=== PATIENT | female | born 1955 | race Caucasian/White ===

== ENCOUNTER 2018-01-19 16:48 | Inpatient (IN) | payer MEDICARE ==
[~2018-01-19] VITALS: Ht 157.5 cm; Wt 83.0 kg
[2018-01-19 19:53] LABS: BASOPHILS % 0.4 % (0.0-1.0); EOSINOPHILS # (AUTO) 0.3 (0.0-0.4); EOSINOPHILS % 2.6 % (0.0-6.0); HEMATOCRIT 34.3 % (34.2-44.1); LYMPHOCYTES # (AUTO) 1.3 (1.0-3.2); LYMPHOCYTES % 13.6 % (18.0-39.1); MEAN CORPUSCULAR HEMOGLOBIN 30.3 pg (28-32); MEAN CORPUSCULAR HGB CONC 32.1 g/dL (31-35); MEAN CORPUSCULAR VOLUME 94.5 fL (81-99); MONOCYTES # (AUTO) 0.6 (0.2-0.8); MONOCYTES % 6.6 % (4.4-11.3); NEUTROPHILS # (AUTO) 7.4 (2.1-6.9); NEUTROPHILS % 76.5 % (38.7-80.0); PLATELET COUNT 244 x10e3/uL (140-360); RED BLOOD COUNT 3.63 x10e6/uL (3.6-5.1); RED CELL DISTRIBUTION WIDTH 13.8 % (11.7-14.4)
[2018-01-19 20:03] LABS: INR 0.98; PROTHROMBIN TIME 13.9 seconds (11.9-14.5)
[2018-01-19 20:10] LABS: ALBUMIN 3.9 g/dL (3.5-5.0); ALBUMIN/GLOBULIN RATIO 1.2 (0.8-2.0); ANION GAP 18.6 mmol/L (8-16); CALCIUM 10.1 mg/dL (8.4-10.2); CREATININE, SERUM 5.45 mg/dL (0.57-1.11); MAGNESIUM 1.9 MG/DL (1.3-2.1); POTASSIUM 3.6 mmol/L (3.5-5.1)
--- NOTE | 2018-01-19 20:12 | Diagnostic Imaging Report ---
EXAM: CHEST SINGLE (PORTABLE), AP 1 view INDICATION: Right toe infection COMPARISON: None FINDINGS: LINES/TUBES: There is a right internal jugular vein tunneled hemodialysis catheter terminates in the expected location of the proximal right atrium. There is a left upper single lead cardiac device with lead in the expected location of the right ventricle. LUNGS: No consolidations or edema. PLEURA: No effusions or pneumothorax. HEART AND MEDIASTINUM: Normal size and contour. Central vascular congestion, likely accentuated by low inspiration. BONES AND SOFT TISSUES: No acute findings. IMPRESSION: No pulmonary edema or evidence of pneumonia. Signed by: Dr. Karie Sales M.D. on 01/19/2018 8:07 PM
--- NOTE | 2018-01-19 20:14 | Diagnostic Imaging Report ---
EXAM: FOOT RIGHT COMPLETE, AP, lateral and oblique INDICATION: Right toe infection after pulling off nail, first digit COMPARISON: None FINDINGS: BONES: No acute fractures. JOINTS: No malalignment. SOFT TISSUES: Subcutaneous emphysema overlying the first digit. Vascular calcifications. IMPRESSION: Wound projects over the first digit without underlying radiopaque foreign body, fracture or erosion. Signed by: Dr. Karie Sales M.D. on 01/19/2018 8:09 PM
[2018-01-19 20:19] LABS: CREATINE KINASE MB 1.2 ng/mL (0-5.0)
[2018-01-19 20:46] LABS: BILIRUBIN,URINE 1+ (NEGATIVE); CLARITY,URINE CLOUDY (CLEAR); COLOR,URINE YELLOW (YELLOW); KETONES,URINE TRACE (NEGATIVE); LEUKOCYTE ESTERASE ,URINE TRACE (NEGATIVE); NITRITE,URINE NEGATIVE (NEGATIVE); PROTEIN,URINE DIPSTICK 3+ (NEGATIVE); URINE UROBILINOGEN 0.2 mg/dL (0.2 - 1)
[2018-01-19 20:53] LABS: AMORPHOUS SEDIMENT,URINE MANY (FEW); EPITHELIAL CELLS,URINE FEW /LPF; RBC,URINE 0-5 /HPF (0-5); WBC,URINE (MAN) 0-5 /HPF (0-5)
[2018-01-19] MEDS ORDERED: VANCOMYCIN 1GM/NS 250 ML 250 ML IV STA (21:11)
[2018-01-19] MEDS ORDERED: PANTOPRAZOLE SO40 MG PO (21:26)
[2018-01-19] MEDS ORDERED: ATORVASTATIN CA10 MG PO (21:26)
[2018-01-19] MEDS ORDERED: LOSARTAN POTASS25 MG PO (21:26)
[2018-01-19] MEDS ORDERED: PRILOSEC OTC20 MG PO (21:26)
[2018-01-19] MEDS ORDERED: ZOFRAN ODT4 MG PO (21:26)
[2018-01-19] MEDS ORDERED: NOVOLIN N100 UNIT/1 (21:26)
[2018-01-19] MEDS ORDERED: DOXYCYCLINE HY100 MG PO (21:26)
[2018-01-19] MEDS ORDERED: LEVETIRACETAM500 MG PO (21:26)
[2018-01-19] MEDS ORDERED: LOVASTATIN20 MG PO (21:26)
[2018-01-19] MEDS ORDERED: CARVEDILOL3.125 MG PO (21:26)
[2018-01-19] MEDS ORDERED: SERTRALINE HCL25 MG PO (21:26)
[2018-01-19] MEDS ORDERED: VITAMIN B-121000 MCG PO (21:26)
[2018-01-19] MEDS ORDERED: QUETIAPINE FUMA25 MG PO (21:26)
[2018-01-19] MEDS ORDERED: SERTRALINE HCL100 MG PO (21:26)
[2018-01-19] MEDS ORDERED: ASPIR 8181 MG PO (21:26)
[2018-01-19] MEDS ORDERED: AMLODIPINE BESYL5 MG PO (21:26)
[2018-01-19] MEDS ORDERED: ONDANSETRON HCL INJ 2 MG/ML VIAL IV PRN (22:30)
[2018-01-19] MEDS ORDERED: MORPHINE SULFATE 2 MG/ML SYR IV PRN (22:30)
[2018-01-19] MEDS ORDERED: DEXTROSE 50% SYRINGE 50 ML IV PRN (22:30)
[2018-01-19] MEDS ORDERED: DIPHENHYDRAMINE HCL INJ 50 MG/ML VIAL IV STA (22:57)
[2018-01-19] MEDS ORDERED: HYDROCODONE/APAP 5MG-325MG TAB PO STA (22:57)
[2018-01-19 23:25] VITALS: BP 156/67
[2018-01-19 23:41] VITALS: BP 156/67
[2018-01-20] VITALS (8 sets, daily range): BP systolic 114–156; BP diastolic 63–74
[2018-01-20 07:32] LABS: BASOPHILS % 0.2 % (0.0-1.0); EOSINOPHILS # (AUTO) 0.2 (0.0-0.4); EOSINOPHILS % 2.7 % (0.0-6.0); HEMATOCRIT 29.9 % (34.2-44.1); HEMOGLOBIN 9.6 g/dL (12.0-16.0); LYMPHOCYTES # (AUTO) 0.9 (1.0-3.2); LYMPHOCYTES % 10.4 % (18.0-39.1); MEAN CORPUSCULAR HEMOGLOBIN 30.5 pg (28-32); MEAN CORPUSCULAR HGB CONC 32.1 g/dL (31-35); MEAN CORPUSCULAR VOLUME 94.9 fL (81-99); MONOCYTES # (AUTO) 0.8 (0.2-0.8); MONOCYTES % 9.1 % (4.4-11.3); NEUTROPHILS # (AUTO) 6.9 (2.1-6.9); NEUTROPHILS % 77.2 % (38.7-80.0); PLATELET COUNT 212 x10e3/uL (140-360); RED BLOOD COUNT 3.15 x10e6/uL (3.6-5.1); RED CELL DISTRIBUTION WIDTH 14.1 % (11.7-14.4)
[2018-01-20] MEDS: INSULIN REGULAR, HUMAN 100 UNIT/1 ML 3ML VIAL SQ SCH ×4 (08:29→21:00)
[2018-01-20] MEDS: PIPERACILLIN/TAZO 2.25 GM 50 ML IV SCH ×2 (08:31→16:56)
[2018-01-20 08:36] LABS: ANION GAP 15.1 mmol/L (8-16); CALCIUM 9.1 mg/dL (8.4-10.2); CREATININE, SERUM 6.11 mg/dL (0.57-1.11); POTASSIUM 3.1 mmol/L (3.5-5.1)
[2018-01-20] MEDS ORDERED: SODIUM CHLORIDE 0.9% 250ML 250 ML ONE (08:37)
--- NOTE | 2018-01-20 10:19 | Consultation ---
DATE OF CONSULTATION: January 20, 2018 REASON FOR CONSULTATION: Cellulitis of right foot with possible osteo, right lower extremity. HISTORY OF PRESENT ILLNESS: This is a pleasant 62-year-old white female with a history of insulin-dependent diabetes and end-stage renal disease for 3 years, who relates she was having some chills several days ago. Has had an infection to the right great toe for several weeks. Was seeing a marketing analytics lead, but the patient does not recall the name of the marketing analytics lead. Is currently denying history of fever, chills, nausea, or vomiting. Having some discomfort to the right great toe. PAST MEDICAL HISTORY: Remarkable for insulin-dependent diabetes, congestive heart failure, end-stage renal disease, hypertension, hypercholesterolemia. PAST SURGICAL HISTORY: Patient denies. ALLERGIES: PATIENT IS ALLERGIC TO SUDAFED AND BACTRIM. SOCIAL HISTORY: Does not smoke, drink or do any type of recreational drug use. Lives alone and has 3 children. FAMILY HISTORY: Remarkable for diabetes on the mother's side. Patient's father was an alcoholic. CURRENT MEDICATIONS: List in chart, including Zosyn and did have a gram of vancomycin when admitted through the emergency room. REVIEW OF SYSTEMS CARDIAC: Denies any palpitations or arrhythmias. RESPIRATORY: Denies any shortness of breath or productive cough. GASTROINTESTINAL: Denies any diarrhea or constipation. PHYSICAL EXAMINATION VITALS: Afebrile, pulse rate 73, respirations 18, blood pressure 134/63, O2 saturation 92%. PODIATRIC PHYSICAL EXAMINATION Reveals the following: VASCULAR: Pedal pulses of both the DP and PT are palpable, but diminished. CFT to all toes less than 5 seconds. NEUROLOGICAL: Complete loss of protective sensation when utilizing [place] 5.07 monofilament wire. MUSCULOSKELETAL: Reveals muscle mass to be symmetrical. Muscle strength is 5/5 to all muscle groups with pain when palpating the medial tubercle bilateral heel. DERMATOLOGICAL: Cellulitis of right great toe. Nail being yellow and discolored with subungual debris. Somewhat discolored when compared to contralateral side. ASSESSMENT: Possible osteomyelitis, right foot. X-ray report with possible foreign body. Was not able to visualized the x-rays myself on this date. PLAN: Will continue IV antibiotics. Will start Bactroban ointment to the affected area. Will continue to observe. Let the foot demarcate and see if the patient starts responding. Possible nail avulsion may eventually will need to be done depending on how the patient starts responding. Possible surgical intervention, including bone debridement may need to be done down the road. Job#: [id number] ALFRED
--- NOTE | 2018-01-20 14:14 | Consultation ---
DATE OF CONSULTATION: RENAL CONSULT REASON FOR CONSULT: ESRD. HISTORY OF PRESENT ILLNESS: This is 62-year-old female who does not remember any of his history. She was admitted secondary to right big toe infection, she has been having that for several weeks. PAST MEDICAL HISTORY: Include 1. ESRD, on hemodialysis Saturday, Saturday, and Saturday. 2. Type 2 diabetes mellitus. 3. Congestive heart failure. 4. Hypertension. 5. Hypercholesteremia. PAST SURGICAL HISTORY: Negative. ALLERGIES: SUDAFED AND BACTRIM. SOCIAL HISTORY: No smoking, no alcohol, and no drugs. FAMILY HISTORY: Type 2 diabetes mellitus. MEDICATIONS: Reviewed. REVIEW OF SYSTEMS: Denies any shortness of breath. Denies any chest pain. Denies any blood in the stool, blood in the urine. No sensory loss, no motor loss. No skin changes except her necrosis. Denies any enlarged lymph nodes. Basically otherwise negative. PHYSICAL EXAMINATION GENERAL: Alert, following commands. HEENT: Pupils equal and reactive to light and accommodation. NECK: No JVD, no bruits. LUNGS: No rhonchi, no rales. HEART: Regular rate and rhythm. No S3, no S4. ABDOMEN: Nontender, nondistended. No hepatosplenomegaly. EXTREMITIES: No clubbing, cyanosis or edema. Right big toe with infection. VITAL SIGNS: Blood pressure 138/63. LABS: White count 8.9, hemoglobin 9.6, hematocrit 29.9. Sodium 140, potassium 3.1, chloride 102, BUN 30, and creatinine 6.1. ASSESSMENT AND PLAN 1. End-stage renal disease, on hemodialysis, scheduled the patient with dialysis today. 2. . We will start the patient on Epogen every dialysis. 3. Right big toe infection. Podiatry is involved, currently on Bactroban ointment and IV antibiotics. She is on Zosyn. 4. Type 2 diabetes mellitus. We will monitor her glucose. Job#: [id number] MORE
[2018-01-20] MEDS ORDERED: ONDANSETRON HCL 4 MG ORAL DISINTEGRATING TAB PO PRN (17:30)
--- NOTE | 2018-01-20 17:56 | History and Physical ---
HISTORY OF PRESENT ILLNESS: A 62-year-old female who has a past medical history positive for diabetes, hypertension, history of end-stage disease on dialysis. Came here because of an infected right big toe. REVIEW OF SYSTEMS: CARDIOVASCULAR: No chest pain or palpitation. RESPIRATORY: No shortness of breath. No cough. GASTROINTESTINAL: No nausea, no vomiting, no diarrhea. GENITOURINARY: No frequency, no dysuria. ALLERGIES: SHE IS ALLERGIC TO BACTRIM, PSEUDOEPHEDRINE. SOCIAL HISTORY: She does not drink alcohol. PHYSICAL EXAMINATION: HEART: Shows regular rhythm. Normal S1 and S2 sounds. LUNGS: Clear bilaterally. ABDOMEN: Soft. EXTREMITIES: Show the redness and swelling on the right big toe with a thickened toenail. FINAL IMPRESSION: 1. Right big toe cellulitis, rule out osteomyelitis. 1. End-stage renal disease on dialysis. 2. Chronic anemia secondary to end-stage renal disease. 3. Diabetes mellitus type 2 with end-stage renal disease. 4. Hypertensive nephropathy. 5. Seizure disorder. PLAN OF TREATMENT: Continue Zosyn twice a day. Continue monitoring blood sugar a.c. and nightly. Continue morphine 4 mg IV q.4 hours as needed. Zofran 4 mg IV q.4 hours as needed. Continue dialysis. Continue renal diabetic diet. Resume the rest of the medications. We are going to get a consult with Dr. Solis for a call or contact centre operator. Dr. Downey has been seeing her for dialysis and Dr. Do for infectious diseases. Job#: [id number] EV
[2018-01-20] MEDS: ATORVASTATIN 10 MG TAB PO SCH (21:25)
[2018-01-20] MEDS: QUETIAPINE FUMARATE 25 MG TAB PO SCH (21:25)
[2018-01-21] VITALS: BP 147/64
[2018-01-21 04:00] VITALS: BP 167/70
[2018-01-21 05:08] LABS: BASOPHILS % 0.4 % (0.0-1.0); EOSINOPHILS # (AUTO) 0.3 (0.0-0.4); EOSINOPHILS % 4.3 % (0.0-6.0); HEMATOCRIT 30.5 % (34.2-44.1); HEMOGLOBIN 9.8 g/dL (12.0-16.0); LYMPHOCYTES # (AUTO) 1.3 (1.0-3.2); LYMPHOCYTES % 17.8 % (18.0-39.1); MEAN CORPUSCULAR HEMOGLOBIN 30.4 pg (28-32); MEAN CORPUSCULAR HGB CONC 32.1 g/dL (31-35); MEAN CORPUSCULAR VOLUME 94.7 fL (81-99); MONOCYTES # (AUTO) 0.7 (0.2-0.8); MONOCYTES % 9.7 % (4.4-11.3); NEUTROPHILS # (AUTO) 4.8 (2.1-6.9); NEUTROPHILS % 67.2 % (38.7-80.0); PLATELET COUNT 202 x10e3/uL (140-360); RED BLOOD COUNT 3.22 x10e6/uL (3.6-5.1); RED CELL DISTRIBUTION WIDTH 14.2 % (11.7-14.4)
[2018-01-21 05:34] LABS: ANION GAP 17.2 mmol/L (8-16); CALCIUM 9.2 mg/dL (8.4-10.2); CREATININE, SERUM 5.81 mg/dL (0.57-1.11); POTASSIUM 3.2 mmol/L (3.5-5.1)
[2018-01-21] MEDS: INSULIN REGULAR, HUMAN 100 UNIT/1 ML 3ML VIAL SQ SCH ×4 (07:30→21:00)
[2018-01-21] MEDS: AMLODIPINE BESYLATE 5 MG TAB PO SCH (07:30)
--- NOTE | 2018-01-21 07:46 | Progress Note ---
DATE: January 21, 2018 SUBJECTIVE: Patient seen at bedside, in no distress. Denies any issues. No fever, chills, nausea or vomiting. OBJECTIVE VITAL SIGNS: Afebrile. Pulse rate 69. Respirations 18. Blood pressure 167/70. O2 saturation 94%. EXTREMITIES: Right great toe getting a little bit better. Still some mild cellulitis compared to contralateral side. Pedal pulse is palpable. LABS: Show a white blood cell count of 7.14. ASSESSMENT: Cellulitis right foot with diabetic neuropathy. PLAN: Will continue IV antibiotics. Continue local wound care. Will continue to let the foot demarcate. Will continue to follow. Job#: [id number] DENISE
[2018-01-21 07:48] VITALS: BP 140/81
[2018-01-21] MEDS ORDERED: PANTOPRAZOLE SOD 40 MG TABEC PO SCH (09:00)
[2018-01-21] MEDS: LOSARTAN POTASSIUM 25 MG TAB PO SCH ×2 (09:00→17:31)
[2018-01-21] MEDS: CARVEDILOL 3.125 MG TAB PO SCH ×2 (09:00→17:31)
[2018-01-21] MEDS: PANTOPRAZOLE SOD 40 MG TABEC PO SCH (10:10)
[2018-01-21] MEDS: PIPERACILLIN/TAZO 2.25 GM 50 ML IV SCH ×2 (10:10→17:00)
[2018-01-21] MEDS: LEVETIRACETAM 500 MG TAB PO SCH ×2 (10:10→17:29)
[2018-01-21] MEDS: ASPIRIN 81 MG CHEW TAB PO SCH (10:10)
[2018-01-21] MEDS: CYANOCOBALAMIN 1,000 MCG TAB PO SCH (10:10)
[2018-01-21] MEDS: SERTRALINE HCL 100 MG TAB PO SCH (10:10)
[2018-01-21] MEDS ORDERED: SODIUM CHLORIDE 0.9% 1000ML 2,000 ML IV PRN (10:45)
[2018-01-21] MEDS ORDERED: EPOETIN 2000 UNIT SQ PRN (11:00)
[2018-01-21 11:19] VITALS: BP 146/67
[2018-01-21 15:22] VITALS: BP 129/76
--- NOTE | 2018-01-21 16:28 | Consultation ---
DATE OF CONSULTATION: REASON FOR CONSULTATION: Infection of the foot, concern for osteomyelitis. HISTORY OF PRESENT ILLNESS: This patient is a very pleasant, 62-year-old female with history of end-stage renal disease on hemodialysis, obesity, diabetes mellitus, neuropathy and congestive heart failure. She comes in with infection of her foot, which she had for more than 3 months. The patient comes in with redness and swelling of her foot. The patient is being admitted. She does have history of arrhythmia and a pacemaker, so MRI was not a possibility. The patient is going to have a bone scan. The patient is complaining of redness and swelling of her right foot. There is no specific trauma. She had for last 3 months been getting progressively worse. There is no specific trauma that she can remember. PAST MEDICAL HISTORY: End-stage disease on hemodialysis. She does see Dr. Donta Downey. She does see Dr. Jonatan Solis for her toe infection. REVIEW OF SYSTEMS HEENT: Negative. PULMONARY: Negative. CARDIAC: Negative. : Negative. SKIN: There is no other rash. JOINTS: There is no acute worsening of pain, fever or chills. PHYSICAL EXAMINATION GENERAL: She is currently alert and oriented. Does not seem to be in acute distress. VITAL SIGNS: Stable. Currently afebrile. HEENT: She is not icteric. NECK: Supple. CHEST: Clear. HEART: S1 and S2, no murmur. ABDOMEN: Soft. There is some tenderness. EXTREMITIES: No edema of the toe. There are some erythema and edema on the right foot involving the big toe. IMPRESSION: Infection in the right big toe chronic for 3 months. Concern about osteomyelitis. Bone scan was ordered. I will also recommend to do vascular workup. She is currently on Zosyn. Will follow with you. Will discuss with attending. Order C-reactive protein. Job#: [id number]
[2018-01-21] MEDS: NPH, HUMAN INSULIN ISOPHANE 100 UNIT/1 ML 3ML VIAL SQ SCH ×2 (16:30→17:32)
--- NOTE | 2018-01-21 19:24 | Progress Note ---
DATE: INTERNAL MEDICINE PROGRESS NOTE SUBJECTIVE: Patient is doing well. No significant complaint. PHYSICAL EXAM: VITAL SIGNS: Blood pressure 129/76. Temperature 96.8. Heart rate 81 per minute. Respiratory rate 17 per minute. Oxygen saturation 98%. HEART: Shows regular rhythm. Normal S1 and S2 sounds. LUNGS: Clear bilaterally. ABDOMEN: Soft. EXTREMITIES: Show the mild cellulitis on the right big toe. BLOOD WORK: Showed a BMP: Sodium 141, potassium 3.2, chloride 103, CO2 24, BUN 45, creatinine 5.81, glucose 133. On the CBC: White blood count 7.14, hemoglobin 9.8, hematocrit 30.5, platelet count 202,000. PT 13.9, PTT 33.0, INR 0.98. AST 11, ALT 8, total bilirubin 0.5, alkaline phosphatase 77. FINAL IMPRESSION: 1. Cellulitis on the right big toe. Rule out osteomyelitis. 2. End-stage renal disease on dialysis. 3. Seizure disorder. 4. Hypercholesterolemia. 5. Hypertension with hypertensive nephropathy. 6. Uncontrolled diabetes mellitus type 2 with diabetic nephropathy. PLAN OF TREATMENT: Continue Zosyn 3.375 grams IV twice a day. Continue with monitoring blood sugar a.c. and nightly. Aspirin 81 mg daily. Keppra 750 mg twice a day. Protonix 40 mg daily. Lipitor 10 mg daily. Losartan 50 mg twice a day. Seroquel 12.5 mg at bedtime. Morphine 4 mg IV q.4 hours as needed. Carvedilol 6.25 mg twice a day. NPH insulin 8 units twice a day. Zoloft 100 mg daily. Amlodipine 2.5 mg daily. Vitamin B12, 1000 mcg daily. Zofran 4 mg IV q.8 hours as needed. We are going to do a bone scan to rule out osteomyelitis, and she is going to need a central line since she has no IV access. Continue podiatry followup with Dr. Solis, infectious disease consult with Dr. Do, Dr. Downey for nephrology. This patient is on dialysis. Diet, renal diabetic diet. Job#: [id number] EV
[2018-01-21 20:00] VITALS: BP 124/54
[2018-01-21] MEDS: QUETIAPINE FUMARATE 25 MG TAB PO SCH (22:22)
[2018-01-21] MEDS: ATORVASTATIN 10 MG TAB PO SCH (22:22)
[2018-01-22] VITALS (7 sets, daily range): BP systolic 124–170; BP diastolic 55–77
[2018-01-22] MEDS: AMLODIPINE BESYLATE 5 MG TAB PO SCH (06:49)
[2018-01-22] MEDS: INSULIN REGULAR, HUMAN 100 UNIT/1 ML 3ML VIAL SQ SCH ×4 (07:30→20:30)
[2018-01-22] MEDS: PIPERACILLIN/TAZO 2.25 GM 50 ML IV SCH ×2 (09:00→16:21)
[2018-01-22] MEDS: ASPIRIN 81 MG CHEW TAB PO SCH (09:06)
[2018-01-22] MEDS: LEVETIRACETAM 500 MG TAB PO SCH ×2 (09:06→16:21)
[2018-01-22] MEDS: SERTRALINE HCL 100 MG TAB PO SCH (09:06)
[2018-01-22] MEDS: PANTOPRAZOLE SOD 40 MG TABEC PO SCH (09:07)
[2018-01-22] MEDS: CYANOCOBALAMIN 1,000 MCG TAB PO SCH (09:07)
[2018-01-22] MEDS: LOSARTAN POTASSIUM 25 MG TAB PO SCH ×2 (09:09→16:21)
[2018-01-22] MEDS: CARVEDILOL 3.125 MG TAB PO SCH ×2 (09:09→16:21)
[2018-01-22] MEDS: NPH, HUMAN INSULIN ISOPHANE 100 UNIT/1 ML 3ML VIAL SQ SCH ×2 (09:12→17:40)
--- NOTE | 2018-01-22 09:41 | Progress Note ---
DATE: January 22, 2018 SUBJECTIVE: Patient is at bedside in no distress and sleeping. OBJECTIVE VITALS: Afebrile, pulse rate 71, respirations 19, blood pressure 156/74, O2 saturation 94%. EXTREMITIES: Right great toe is getting significantly better. Decreased swelling. Decreased cellulitis. Decreased foul smell. ASSESSMENT AND PLAN: Cellulitis and onychia and onychomycosis. PLAN: Will continue Bactroban ointment to the affected area. Continue Zosyn IVPB. Will continue to follow. Job#: [id number] RI
--- NOTE | 2018-01-22 14:19 | Diagnostic Imaging Report ---
Procedure: Left internal jugular central venous catheter placement with ultrasound guidance cut off saw operator: Dr. Gino Mccord Pre-operative diagnosis: Requiring central venous access Post-operative diagnosis: Status post central venous access Sedation: Local sedation Medications: 5 cc of 1% subcutaneous lidocaine Radiation Dose: N/A Specimens: None Implants: 7 Prydeinig 20 cm triple-lumen central venous catheter DISCUSSION: Informed consent was obtained from the patient and documented in the medical record. The patient was placed in the supine position. Preliminary sonographic evaluation of the left neck confirmed a patent and compressible left internal jugular vein. The neck was then prepped and draped in a standard sterile fashion. Subsequently, 1% lidocaine was infiltrated into the skin and subcutaneous tissues for local anesthesia. Then under continuous sonographic guidance a micropuncture needle was advanced into the left internal jugular vein. A permanent sonographic image was stored in the medical record. An .018'' wire was placed and upsized to an .035'' Amplatz wire using micropuncture sheath. The .035'' wire was advanced centrally. The micropuncture sheath was removed. The tract was dilated. Then, a 7 [place]ig, 20 cm triple-lumen central venous catheter was advanced over the wire. The wire was then removed. Each lumen was tested and showed adequate bidirectional flow. The catheter was secured to the skin with Monocryl, flushed with sterile saline, and covered by a sterile dressing. The patient tolerated the procedure well without immediate duplication. FINDINGS: Patent left internal jugular vein. IMPRESSION: Placement of a 7 Prydeinig 20 cm triple-lumen central venous catheter by a left internal jugular approach under sonographic guidance. A postprocedure chest radiograph will be obtained to confirm line positioning prior to use. Signed by: Dr. Gino Mccord MD on 01/22/2018 2:16 PM
--- NOTE | 2018-01-22 14:24 | Diagnostic Imaging Report ---
EXAMINATION: CHEST XRAY LINE PLACEMENT INDICATION: Status post line placement COMPARISON: Chest radiograph 01/19/18. FINDINGS: LINES/TUBES: Interval placement of a left IJ non-tunneled central venous catheter with tip in the expected location of the cavoatrial junction. There is a right internal jugular vein tunneled hemodialysis catheter terminates in the expected location of the proximal right atrium. There is a left single lead cardiac device with lead in the expected location of the right ventricle. LUNGS: Low lung volumes with mild patchy bibasilar atelectasis. No consolidations or edema. PLEURA: No effusions or pneumothorax. HEART AND MEDIASTINUM: Unremarkable cardiomediastinal silhouette. Central vascular congestion, likely secondary to low long volumes. BONES AND SOFT TISSUES: No acute findings. IMPRESSION: Left IJ non-tunneled central venous catheter terminating at the expected location of the cavoatrial junction. No evidence of pneumothorax. No acute intrathoracic radiographic abnormality. Signed by: Dr. Gino Mccord MD on 01/22/2018 2:21 PM
[2018-01-22] MEDS: MORPHINE SULFATE INJ 4 MG/ML INJ IV PRN ×2 (17:24→23:07)
--- NOTE | 2018-01-22 19:00 | Progress Note ---
DATE: INTERNAL MEDICINE PROGRESS NOTE SUBJECTIVE: The patient is doing better. PHYSICAL EXAMINATION VITAL SIGNS: Blood pressure 138/55, temperature is 97.3, heart rate 71 per minute, respiratory rate 19 per minute, oxygen saturation 97%. HEART: Shows regular rhythm. Normal S1 and S2 sounds. LUNGS: Clear bilaterally. ABDOMEN: Soft. EXTREMITIES: Show no evidence of cyanosis or trauma. She has cellulitis on the right big toe which is slowly resolving. On the BMP, sodium 141, potassium 3.2, chloride 103, CO2 24, BUN 45, creatinine 5.81, glucose 133. On the CBC, white blood count 7.14, hemoglobin 9.8, hematocrit 30.5, and platelet count 202,000. PT 13.9, INR 0.98 and PTT 33. AST 11, ALT 8, total bilirubin 0.5, alkaline phosphatase 170. FINAL IMPRESSION 1. Right big toe cellulitis: Rule out osteomyelitis. 2. End-stage renal disease, on dialysis. 3. Diabetes mellitus, type 2 with end-stage renal disease. 4. Seizure disorder. 5. Hypercholesterolemia. 6. Hypertensive nephropathy. PLAN OF TREATMENT: Continue Zosyn q.12 h. Continue monitoring blood sugar a.c. and at night. Aspirin 81 mg daily. Keppra 750 mg twice a day. Protonix 40 mg daily. Lipitor 10 mg daily. Losartan 50 mg twice a day. Seroquel 12.5 mg at bedtime. Morphine 4 mg IV q.4 h. as needed. Carvedilol 6.25 mg twice a day. NPH insult 8 units twice a day. Sertraline 100 mg daily. Amlodipine 2.5 mg daily. Vitamin B12 1000 mcg daily. Zofran 4 mg IV q.8 h. as needed. We are waiting for the bone scan report. Job#: [id number] ALFRED
[2018-01-22] MEDS: ATORVASTATIN 10 MG TAB PO SCH (20:33)
[2018-01-22] MEDS: QUETIAPINE FUMARATE 25 MG TAB PO SCH (20:33)
[2018-01-23] VITALS: BP 119/57
[2018-01-23 04:00] VITALS: BP 110/55
[2018-01-23 07:44] VITALS: BP 101/49
--- NOTE | 2018-01-23 07:44 | Diagnostic Imaging Report ---
Bone Scan, three-phase - feet and ankles Reason for exam: Cellulitis right great toe; injury to right great toe 3 months ago. Radiopharmaceutical: Tc-99m MDP 27 mCi Comparison: Right foot radiographs 01/19/2018 Following intravenous administration of the radiopharmaceutical, dynamic flow and immediate blood pool images of the feet and ankles followed by 24-hour delayed spot images were obtained. Flow and blood pool images show symmetric distribution of tracer activity to the feet and ankles with focal increased tracer in the right great toe. The toes of the left foot are poorly perfused. Delayed images show focal increased tracer activity in the phalanges of the right great toe. Symmetrical increased tracer uptake is seen in the bilateral first metatarsophalangeal joints and diffuse degenerative changes/neuropathic changes in the ankles and mid foot regions. Impression: Scan findings are worrisome for osteomyelitis in the right great toe. Three-phase bone scan lacks specificity in the clinical setting of complicated osteomyelitis. A labeled WBC scan would add specificity to the evaluation. Signed by: Dr. Lubna Loving M.D. on 01/23/2018 7:41 AM
[2018-01-23 08:00] VITALS: BP 101/49
[2018-01-23] MEDS: ASPIRIN 81 MG CHEW TAB PO SCH (08:44)
[2018-01-23] MEDS: PIPERACILLIN/TAZO 2.25 GM 50 ML IV SCH ×2 (08:44→17:31)
[2018-01-23] MEDS: LEVETIRACETAM 500 MG TAB PO SCH ×2 (08:44→17:32)
[2018-01-23] MEDS: CYANOCOBALAMIN 1,000 MCG TAB PO SCH (08:45)
[2018-01-23] MEDS: CARVEDILOL 3.125 MG TAB PO SCH ×2 (08:45→17:31)
[2018-01-23] MEDS: PANTOPRAZOLE SOD 40 MG TABEC PO SCH (08:45)
[2018-01-23] MEDS: LOSARTAN POTASSIUM 25 MG TAB PO SCH ×2 (08:45→17:32)
[2018-01-23] MEDS: AMLODIPINE BESYLATE 5 MG TAB PO SCH (08:46)
[2018-01-23] MEDS: SERTRALINE HCL 100 MG TAB PO SCH (08:46)
--- NOTE | 2018-01-23 09:09 | Progress Note ---
DATE: January 23, 2018 SUBJECTIVE: Patient seen at bedside. Doing well. Decreased pain to the right lower extremity. Denies any history of fever, chills, nausea, or vomiting. OBJECTIVE VITAL SIGNS: Afebrile. Vital signs stable. EXTREMITIES: There is some cellulitis surrounding the right great toe. Decreased edema when compared to contralateral side. Some discoloration to the toenail. LABS: Show white blood cell count of 7.14. ASSESSMENT 1. Onychia. 2. Onychomycosis. 3. Subungual hematoma with cellulitis. PLAN: Will continue Bactroban ointment. Continue Zosyn IVPB. Will continue to follow. If not responsive down the road, nail avulsion and I and D of hematoma may need to be done. Will continue to treat conservatively for now. Job#: [id number] ALFRED
[2018-01-23] MEDS: INSULIN REGULAR, HUMAN 100 UNIT/1 ML 3ML VIAL SQ SCH ×3 (09:19→16:30)
[2018-01-23] MEDS: NPH, HUMAN INSULIN ISOPHANE 100 UNIT/1 ML 3ML VIAL SQ SCH ×2 (09:19→16:30)
[2018-01-23] MEDS ORDERED: HEPARIN SOD (PORCINE) 5,000 UNIT/ML VIAL IV ONE (09:45)
[2018-01-23] MEDS ORDERED: EPOETIN ALFA 10000 UNIT/ML VIAL SC ONE (09:45)
[2018-01-23] MEDS ORDERED: SODIUM CHLORIDE 0.9% 1000ML 2,000 ML IV PRN (10:00)
[2018-01-23] MEDS ORDERED: HEPARIN SOD (PORCINE) 1000 UNIT/ML SDV IV PRN (10:00)
--- NOTE | 2018-01-23 11:03 | Progress Note ---
DATE: INTERNAL MEDICINE PROGRESS NOTE A 62-year-old female who came with right big toe infection. She was found to have osteomyelitis on the right big toe. She is going to be transferred to [facility] hopefully today. PHYSICAL EXAMINATION HEART: Shows regular rhythm. Normal S1 and S2 sounds. LUNGS: Clear bilaterally. ABDOMEN: Soft. EXTREMITIES: Show the redness of the right big toe. FINAL IMPRESSIO 1. Osteomyelitis of the right big toe. 2. End-stage renal disease, on dialysis. 3. Diabetes mellitus, type 2 with end-stage disease. 4. Seizure disorder. PLAN OF TREATMENT: Continue with Zosyn twice a day. Continue with monitoring blood sugar a.c. and at night. Aspirin 81 mg daily. Keppra 750 mg twice a day. Protonix 40 mg daily. Zofran 4 mg IV q.4 h. as needed. Lipitor 10 mg daily. Losartan 50 mg twice a day. Seroquel 12.5 mg at bedtime. Morphine 4 mg IV q.4 h. as needed. Carvedilol 6.25 mg twice a day. NPH insulin 8 units twice a day. Sertraline 100 mg daily. Amlodipine 2.5 mg daily. Vitamin B12 1000 mcg daily. Job#: [id number] ALFRED
[2018-01-23 12:00] VITALS: BP 151/62
[2018-01-23 16:00] VITALS: BP 136/58
[2018-01-23 17:32] LABS: BASOPHILS % 0.3 % (0.0-1.0); EOSINOPHILS # (AUTO) 0.2 (0.0-0.4); EOSINOPHILS % 3.3 % (0.0-6.0); HEMATOCRIT 30.3 % (34.2-44.1); HEMOGLOBIN 9.4 g/dL (12.0-16.0); LYMPHOCYTES # (AUTO) 1.1 (1.0-3.2); LYMPHOCYTES % 14.7 % (18.0-39.1); MEAN CORPUSCULAR HEMOGLOBIN 30.1 pg (28-32); MEAN CORPUSCULAR VOLUME 97.1 fL (81-99); MONOCYTES # (AUTO) 0.4 (0.2-0.8); MONOCYTES % 5.8 % (4.4-11.3); NEUTROPHILS # (AUTO) 5.5 (2.1-6.9); NEUTROPHILS % 75.5 % (38.7-80.0); PLATELET COUNT 183 x10e3/uL (140-360); RED BLOOD COUNT 3.12 x10e6/uL (3.6-5.1); RED CELL DISTRIBUTION WIDTH 14.4 % (11.7-14.4)
[2018-01-23 18:07] LABS: ANION GAP 18.5 mmol/L (8-16); CREATININE, SERUM 3.55 mg/dL (0.57-1.11); POTASSIUM 3.5 mmol/L (3.5-5.1)
== END 2018-01-23 20:14 | DRG 602 ==
LOC: ER 16:48 → ERHOLD 22:25 → MED/SURG2 23:09
PROVIDERS: ADMIT Internal Medicine; ATTEND Internal Medicine
PROC: 5A1D70Z Performance of Urinary Filtration, Intermittent, Less than 6 Hours Per Day (ICD-10-PCS; 2018-01-21)
PROC: 02HV33Z Insertion of Infusion Device into Superior Vena Cava, Percutaneous Approach (ICD-10-PCS; principal; 2018-01-22)
DX: L03.031 Cellulitis of right toe (principal); N18.6 End stage renal disease; I12.0 Hypertensive chronic kidney disease with stage 5 chronic kidney disease or end stage renal disease; M86.9 Osteomyelitis, unspecified; E11.22 Type 2 diabetes mellitus with diabetic chronic kidney disease; G40.909 Epilepsy, unspecified, not intractable, without status epilepticus; E11.40 Type 2 diabetes mellitus with diabetic neuropathy, unspecified; E11.69 Type 2 diabetes mellitus with other specified complication; E78.00 Pure hypercholesterolemia, unspecified; E11.21 Type 2 diabetes mellitus with diabetic nephropathy; Z95.0 Presence of cardiac pacemaker; E87.6 Hypokalemia; R53.81 Other malaise; B35.1 Tinea unguium; E11.65 Type 2 diabetes mellitus with hyperglycemia; Z68.33 Body mass index [BMI] 33.0-33.9, adult; E66.9 Obesity, unspecified; Z99.2 Dependence on renal dialysis; Z79.82 Long term (current) use of aspirin; Z79.4 Long term (current) use of insulin; Z86.73 Personal history of transient ischemic attack (TIA), and cerebral infarction without residual deficits; D63.1 Anemia in chronic kidney disease
CPT/HCPCS: 36415; 36556; 71045; 74470; 76937; 78315; 80048; 80053; 81001; 82550; 82553; 82948; 83605; 83735; 84484; 85025; 85610; 85730; 87040; 87086; 90962; 93005; 93925; 99284; A9503; C1751; J1200; J1644; J2270; J2543; J3370; J7030; J7050; Q4081

== ENCOUNTER 2018-02-18 11:00 | Emergency (ER) | payer MEDICARE ==
[~2018-02-18 11:00] MED LIST: AMLODIPINE BESYL5 MG PO; ASPIR 8181 MG PO; ATORVASTATIN CA10 MG PO; CARVEDILOL3.125 MG PO; DOXYCYCLINE HY100 MG PO; LEVETIRACETAM500 MG PO; LOSARTAN POTASS25 MG PO; LOVASTATIN20 MG PO; NOVOLIN N100 UNIT/1; PANTOPRAZOLE SO40 MG PO; PRILOSEC OTC20 MG PO; QUETIAPINE FUMA25 MG PO; SERTRALINE HCL100 MG PO; SERTRALINE HCL25 MG PO; VITAMIN B-121000 MCG PO; ZOFRAN ODT4 MG PO
--- OUTSIDE RECORDS SUMMARY | 2018-02-18 11:03 | XMS REPORT | Clinical Summary ---
Author Author [facility] Organization [facility] Address Unknown Phone Unavailable Care Team Providers Care Car Hostler Name Role Phone Asked, No Pcp PCP Unavailable Allergies Active Allergy Reactions Severity Noted Date Comments Sulfamethoxazole-Trimetho Hives 01/24/2018 prim Perflutren Lipid 01/24/2018 Microspheres Iohexol 01/24/2018 Pseudoephedrine Hcl 01/24/2018 Sulfa (Sulfonamide 01/24/2018 Antibiotics) Current Medications Prescription Sig. Disp. Refills Start End Date Status Date losartan (COZAAR) 50 MG Take 50 mg by mouth 2 Active tablet (two) times a day. atorvastatin (LIPITOR) 10 Take 10 mg by mouth Active MG tablet daily. pantoprazole (PROTONIX) Take 20 mg by mouth Active 20 MG EC tablet daily. QUEtiapine (SEROquel) 25 Take 25 mg by mouth Active MG tablet nightly. lanthanum (FOSRENOL) 750 Chew 750 mg daily. Active MG chewable tablet amLODIPine (NORVASC) 2.5 Take 2.5 mg by mouth Active mg tablet daily. carvedilol (COREG) 6.25 Take 6.25 mg by mouth 2 Active MG tablet (two) times a day with meals. insulin detemir U-100 Inject 15 Units under the Active (LEVEMIR) 100 unit/mL skin daily. injection levETIRAcetam (KEPPRA) Take 750 mg by mouth 2 Active 750 MG tablet (two) times a day. aspirin 81 mg chewable Chew 1 tablet (81 mg 30 tablet 0 02/01/20 03/02/20 Active tablet total) daily for 30 days. 18 18 clopidogrel (PLAVIX) 75 Take 1 tablet (75 mg 30 tablet 0 02/01/20 03/02/20 Active mg tablet total) by mouth daily for 18 18 30 days. vancomycin 750 mg in Infuse 750 mg into a 1 each 0 02/04/20 03/05/20 Active sodium chloride 0.9% 250 venous catheter 3 (three) 18 18 mL IVPB times a week for 30 days. Saturday/saturday/Saturday with HD QUEtiapine (SEROquel) 25 Take 1 tablet (25 mg 30 tablet 0 02/05/20 03/06/20 Active MG tablet total) by mouth daily as 18 18 needed (agitation) for up to 30 days. sertraline (ZOLOFT) 100 Take 1 tablet (100 mg 30 tablet 0 02/05/20 03/06/20 Active MG tablet total) by mouth daily for 18 18 30 days. LORAZepam (ATIVAN) 1 MG Take 1 tablet (1 mg 30 tablet 0 02/05/20 02/20/20 Active tablet total) by mouth every 12 18 18 (twelve) hours as needed for anxiety for up to 15 days. fluconazole (DIFLUCAN) Take 1 tablet (200 mg 7 tablet 0 02/15/20 02/22/20 Active 200 MG tablet total) by mouth daily for 18 18 7 days. nystatin (MYCOSTATIN) Apply topically 2 (two) 30 g 0 02/14/20 03/15/20 Active 100,000 unit/gram times a day for 30 days. 18 18 ointment sertraline (ZOLOFT) 100 Take 100 mg by mouth 02/05/20 Discontin MG tablet daily. 18 ued vancomycin (VANCOCIN) Infuse 1,000 mg into a 02/01/20 02/01/20 1000 mg IVPB in 250 mL NS venous catheter one time 18 18 combo after dialysis for 1 dose. clindamycin (CLEOCIN HCL) Take 2 capsules (600 mg 180 capsule 1 02/01/20 02/05/20 Discontin 300 MG capsule total) by mouth 3 (three) 18 18 ued times a day for 35 days. fluconazole (DIFLUCAN) Take 1 tablet (200 mg 7 tablet 0 02/01/20 02/08/20 200 MG tablet total) by mouth daily for 18 18 7 days. QUEtiapine (SEROquel) 25 Take 1 tablet (25 mg 30 tablet 0 02/04/20 02/05/20 Discontin MG tablet total) by mouth daily as 18 18 ued needed (agitation) for up to 30 days. Active Problems Problem Noted Date Fatigue 02/11/2018 Cellulitis of great toe of right foot 01/24/2018 Encounters Date Type Specialty Care Team Description 02/11/2018 Emergency General Internal Medicine Angel Marie MD Fatigue, unspecified type - Omid [place] (Primary Dx); 02/13/2018 MD Addison Bilateral leg weakness; ESRD (end stage renal disease) ([facility]); Osteomyelitis of ankle and foot ([facility]); Other fatigue; Cellulitis of great toe of right foot 01/30/2018 Anesthesia Radiology Joana Agudelo MD Event 01/29/2018 Procedure Pass Procedural Cardiology 01/24/2018 [facility] General Internal Medicine Erik Bianchi NP-C Other acute osteomyelitis - Encounter Braden Nagy, of right foot ([facility]) 02/04/2018 (Primary Dx); Omid [place] Cellulitis of great toe MD Addison of right foot; ESRD (end stage renal disease) on dialysis; Candidiasis; PAD (peripheral artery disease) ([facility]); S/P peripheral artery angioplasty with stent placement; Essential hypertension, benign; Late onset Alzheimer's disease with behavioral disturbance after 02/17/2017 Social History Tobacco Use Types Packs/Day Years Used Date Never Smoker Smokeless Tobacco: Never Used Alcohol Use Drinks/Week oz/Week Comments No Sex Assigned at Date Recorded Not on file Last Filed Vital Signs Vital Sign Reading Time Taken Blood Pressure 140/60 02/13/2018 11:02 AM CDT Pulse 80 02/13/2018 11:02 AM CDT Temperature 36.8 C (98.2 F) 02/13/2018 11:02 AM CDT Respiratory Rate 18 02/13/2018 11:02 AM CDT Oxygen Saturation 95% 02/13/2018 11:02 AM CDT Inhaled Oxygen - - Concentration Weight 80.7 kg (178 lb) 02/11/2018 11:50 PM CDT Height 157.5 cm (5' 2") 02/11/2018 11:50 PM CDT Body Mass Index 32.56 02/11/2018 11:50 PM CDT Plan of Treatment Health Maintenance Due Date Last Done Comments CERVICAL CANCER SCREENING 1976 BREAST CANCER SCREENING 2005 COLON CANCER SCREENING 2005 SHINGRIX VACCINE (#1) 2005 ZOSTER VACCINE 2015 INFLUENZA VACCINE 11/27/2017 Implants Implanted Type Area Bill Distributor Device Expiration Model / Identifier Date Serial / Lot Device Vasclr Clsr Vasoactive Cardiovasc N/A: N/A [id number] / Intstnl Peptd 6fr Angio-Seal - ular / [id number] Implants Implanted: 01/30/2018 (Quantity not on file) Pacemaker Pacemaker Catheter In.Pact [employer] Surgical N/A: N/A [employer] [facility] - [id number] Coated Periph Ball 5 X120 X130 - Implants; VASCULAR 3P / [id number] Expanders; / Implanted: 01/30/2018 (Quantity not Extenders; on file) Surgical Wires Procedures Procedure Name Priority Date/Time Associated Diagnosis Comments ESTIMATED GFR Routine 02/13/2018 Results for this 5:42 AM CDT procedure are in the results section. BASIC METABOLIC PANEL Routine 02/13/2018 Results for this 5:42 AM CDT procedure are in the results section. HEPATITIS B SURFACE STAT 02/12/2018 Results for this ANTIGEN 5:15 PM CDT procedure are in the results section. POC GLUCOSE Routine 02/12/2018 Results for this 4:56 PM CDT procedure are in the results section. POC GLUCOSE Routine 02/12/2018 Results for this 11:24 AM CDT procedure are in the results section. HEMODIALYSIS Routine 02/12/2018 9:59 AM CDT POC GLUCOSE Routine 02/12/2018 Results for this 8:34 AM CDT procedure are in the results section. TROPONIN Timed 02/12/2018 Results for this 3:05 AM CDT procedure are in the results section. ESTIMATED GFR Routine 02/12/2018 Results for this 3:04 AM CDT procedure are in the results section. BASIC METABOLIC PANEL Routine 02/12/2018 Results for this 3:04 AM CDT procedure are in the results section. HC COMPLETE BLD COUNT Routine 02/12/2018 Results for this W/AUTO DIFF 3:04 AM CDT procedure are in the results section. TROPONIN Timed 02/11/2018 Results for this 11:00 PM CDT procedure are in the results section. US DUPLEX ARTERIAL LOWER STAT 02/11/2018 Results for this EXTREMITY BILATERAL 10:00 PM CDT procedure are in the results section. CT HEAD WO CONTRAST STAT 02/11/2018 Results for this 8:35 PM CDT procedure are in the results section. ESTIMATED GFR STAT 02/11/2018 Results for this 8:16 PM CDT procedure are in the results section. PHOSPHORUS LEVEL STAT 02/11/2018 Results for this 8:16 PM CDT procedure are in the results section. MAGNESIUM LEVEL STAT 02/11/2018 Results for this 8:16 PM CDT procedure are in the results section. AMYLASE LEVEL STAT 02/11/2018 Results for this 8:16 PM CDT procedure are in the results section. LIPASE LEVEL STAT 02/11/2018 Results for this 8:16 PM CDT procedure are in the results section. TROPONIN STAT 02/11/2018 Results for this 8:16 PM CDT procedure are in the results section. COMPREHENSIVE METABOLIC STAT 02/11/2018 Results for this PANEL 8:16 PM CDT procedure are in the results section. HC COMPLETE BLD COUNT STAT 02/11/2018 Results for this W/AUTO DIFF 8:16 PM CDT procedure are in the results section. POC GLUCOSE Routine 02/04/2018 Results for this 5:45 AM CDT procedure are in the results section. POC GLUCOSE Routine 02/03/2018 Results for this 4:30 PM CDT procedure are in the results section. HEMODIALYSIS Routine 02/03/2018 2:27 PM CDT POC GLUCOSE Routine 02/03/2018 Results for this 11:22 AM CDT procedure are in the results section. POC GLUCOSE Routine 02/03/2018 Results for this 6:24 AM CDT procedure are in the results section. VANCOMYCIN LEVEL, TROUGH Timed 02/03/2018 Results for this 4:45 AM CDT procedure are in the results section. POC GLUCOSE Routine 02/02/2018 Results for this 7:46 PM CDT procedure are in the results section. POC GLUCOSE Routine 02/02/2018 Results for this 5:12 PM CDT procedure are in the results section. POC GLUCOSE Routine 02/02/2018 Results for this 11:21 AM CDT procedure are in the results section. POC GLUCOSE Routine 02/02/2018 Results for this 6:22 AM CDT procedure are in the results section. POC GLUCOSE Routine 02/01/2018 Results for this 8:59 PM CDT procedure are in the results section. POC GLUCOSE Routine 02/01/2018 Results for this 3:58 PM CDT procedure are in the results section. POC GLUCOSE Routine 02/01/2018 Results for this 1:11 PM CDT procedure are in the results section. POC GLUCOSE Routine 02/01/2018 Results for this 6:04 AM CDT procedure are in the results section. POC GLUCOSE Routine 01/31/2018 Results for this 7:47 PM CDT procedure are in the results section. POC GLUCOSE Routine 01/31/2018 Results for this 3:50 PM CDT procedure are in the results section. HEMODIALYSIS Routine 01/31/2018 11:48 AM CDT POC GLUCOSE Routine 01/31/2018 Results for this 11:04 AM CDT procedure are in the results section. HEMODIALYSIS Routine 01/31/2018 9:42 AM CDT POC GLUCOSE Routine 01/31/2018 Results for this 5:30 AM CDT procedure are in the results section. HEPATITIS ACUTE PANEL Routine 01/31/2018 Results for this 5:00 AM CDT procedure are in the results section. ESTIMATED GFR Routine 01/31/2018 Results for this 5:00 AM CDT procedure are in the results section. HC COMPLETE BLD COUNT Routine 01/31/2018 Results for this W/AUTO DIFF 5:00 AM CDT procedure are in the results section. BASIC METABOLIC PANEL Routine 01/31/2018 Results for this 5:00 AM CDT procedure are in the results section. POC GLUCOSE Routine 01/30/2018 Results for this 8:42 PM CDT procedure are in the results section. POC GLUCOSE Routine 01/30/2018 Results for this 5:13 PM CDT procedure are in the results section. IR REVASC FEM POPL W TLA Routine 01/30/2018 Results for this RIGHT 5:05 PM CDT procedure are in the results section. IR ABDOMINAL AORTOGRAM Routine 01/30/2018 Results for this 5:05 PM CDT procedure are in the results section. IR BILATERAL LOWER Routine 01/30/2018 Results for this EXTREMITY ARTERIOGRAM 5:05 PM CDT procedure are in the results section. ACTIVATED CLOTTING TIME Routine 01/30/2018 Results for this 4:40 PM CDT procedure are in the results section. POTASSIUM LEVEL STAT 01/30/2018 Results for this 2:15 PM CDT procedure are in the results section. POC GLUCOSE Routine 01/30/2018 Results for this 11:33 AM CDT procedure are in the results section. POC GLUCOSE Routine 01/30/2018 Results for this 5:41 AM CDT procedure are in the results section. POC GLUCOSE Routine 01/29/2018 Results for this 8:33 PM CDT procedure are in the results section. POC GLUCOSE Routine 01/29/2018 Results for this 4:05 PM CDT procedure are in the results section. POC GLUCOSE Routine 01/29/2018 Results for this 11:24 AM CDT procedure are in the results section. POC GLUCOSE Routine 01/29/2018 Results for this 5:58 AM CDT procedure are in the results section. TYPE AND SCREEN Routine 01/29/2018 Results for this 4:42 AM CDT procedure are in the results section. ESTIMATED GFR Routine 01/29/2018 Results for this 4:42 AM CDT procedure are in the results section. HC COMPLETE BLD COUNT Routine 01/29/2018 Results for this W/AUTO DIFF 4:42 AM CDT procedure are in the results section. BASIC METABOLIC PANEL Routine 01/29/2018 Results for this 4:42 AM CDT procedure are in the results section. VANCOMYCIN LEVEL, RANDOM Routine 01/29/2018 Results for this 4:42 AM CDT procedure are in the results section. POC GLUCOSE Routine 01/28/2018 Results for this 8:57 PM CDT procedure are in the results section. POC GLUCOSE Routine 01/28/2018 Results for this 5:00 PM CDT procedure are in the results section. POC GLUCOSE Routine 01/28/2018 Results for this 12:19 PM CDT procedure are in the results section. POC GLUCOSE Routine 01/28/2018 Results for this 6:11 AM CDT procedure are in the results section. POC GLUCOSE Routine 01/27/2018 Results for this 8:43 PM CDT procedure are in the results section. VANCOMYCIN LEVEL, RANDOM Routine 01/27/2018 Results for this 6:58 PM CDT procedure are in the results section. POC GLUCOSE Routine 01/27/2018 Results for this 4:39 PM CDT procedure are in the results section. POC GLUCOSE Routine 01/27/2018 Results for this 11:55 AM CDT procedure are in the results section. HEPATITIS B SURFACE AB, Routine 01/27/2018 Results for this QUANTITATIVE 11:21 AM CDT procedure are in the results section. POC GLUCOSE Routine 01/27/2018 Results for this 6:27 AM CDT procedure are in the results section. HEPATITIS B SURFACE AB, Routine 01/27/2018 Results for this QUANTITATIVE 5:16 AM CDT procedure are in the results section. HEPATITIS B SURFACE Routine 01/27/2018 Results for this ANTIGEN 5:16 AM CDT procedure are in the results section. ESTIMATED GFR Routine 01/27/2018 Results for this 5:16 AM CDT procedure are in the results section. BASIC METABOLIC PANEL Routine 01/27/2018 Results for this 5:16 AM CDT procedure are in the results section. HC COMPLETE BLD COUNT Routine 01/27/2018 Results for this W/AUTO DIFF 5:16 AM CDT procedure are in the results section. XR CHEST 2 VW Routine 01/26/2018 Results for this 10:49 PM CDT procedure are in the results section. POC GLUCOSE Routine 01/26/2018 Results for this 8:17 PM CDT procedure are in the results section. POC GLUCOSE Routine 01/26/2018 Results for this 4:58 PM CDT procedure are in the results section. POC GLUCOSE Routine 01/26/2018 Results for this 11:56 AM CDT procedure are in the results section. CT LOWER EXTREMITY WO Routine 01/26/2018 Results for this CONTRAST RIGHT 9:53 AM CDT procedure are in the results section. ESTIMATED GFR Routine 01/26/2018 Results for this 5:10 AM CDT procedure are in the results section. PHOSPHORUS LEVEL Routine 01/26/2018 Results for this 5:10 AM CDT procedure are in the results section. HC COMPLETE BLD COUNT Routine 01/26/2018 Results for this W/AUTO DIFF 5:10 AM CDT procedure are in the results section. BASIC METABOLIC PANEL Routine 01/26/2018 Results for this 5:10 AM CDT procedure are in the results section. VANCOMYCIN LEVEL, RANDOM Routine 01/26/2018 Results for this 5:10 AM CDT procedure are in the results section. POC GLUCOSE Routine 01/26/2018 Results for this 5:08 AM CDT procedure are in the results section. POC GLUCOSE Routine 01/25/2018 Results for this 8:55 PM CDT procedure are in the results section. ECG 12-LEAD Routine 01/25/2018 Results for this 5:35 PM CDT procedure are in the results section. POC GLUCOSE Routine 01/25/2018 Results for this 4:59 PM CDT procedure are in the results section. PV PHYSIOLOGIC ARTERIAL Routine 01/25/2018 Results for this LOWER EXTREMITY LIMITED 1:47 PM CDT procedure are in the results section. POC GLUCOSE Routine 01/25/2018 Results for this 11:46 AM CDT procedure are in the results section. POC GLUCOSE Routine 01/25/2018 Results for this 5:49 AM CDT procedure are in the results section. ESTIMATED GFR Routine 01/25/2018 Results for this 4:33 AM CDT procedure are in the results section. COMPREHENSIVE METABOLIC Routine 01/25/2018 Results for this PANEL 4:33 AM CDT procedure are in the results section. HC COMPLETE BLD COUNT Routine 01/25/2018 Results for this W/AUTO DIFF 4:33 AM CDT procedure are in the results section. POC GLUCOSE Routine 01/24/2018 Results for this 11:05 PM CDT procedure are in the results section. ANAEROBIC CULTURE Routine 01/24/2018 Results for this 9:30 PM CDT procedure are in the results section. GRAM STAIN Routine 01/24/2018 Results for this 9:30 PM CDT procedure are in the results section. AEROBIC CULTURE Routine 01/24/2018 Results for this 9:30 PM CDT procedure are in the results section. BLOOD CULTURE, AEROBIC & Routine 01/24/2018 Results for this ANAEROBIC 9:15 PM CDT procedure are in the results section. BLOOD CULTURE, AEROBIC & Routine 01/24/2018 Results for this ANAEROBIC 9:15 PM CDT procedure are in the results section. LIPID PANEL Routine 01/24/2018 Results for this 9:10 PM CDT procedure are in the results section. HEMOGLOBIN A1C Routine 01/24/2018 Results for this 9:10 PM CDT procedure are in the results section. ESTIMATED GFR STAT 01/24/2018 Results for this 9:10 PM CDT procedure are in the results section. PARTIAL THROMBOPLASTIN STAT 01/24/2018 Results for this TIME (PTT) 9:10 PM CDT procedure are in the results section. PROTHROMBIN TIME WITH INR STAT 01/24/2018 Results for this 9:10 PM CDT procedure are in the results section. COMPREHENSIVE METABOLIC STAT 01/24/2018 Results for this PANEL 9:10 PM CDT procedure are in the results section. HC COMPLETE BLD COUNT STAT 01/24/2018 Results for this W/AUTO DIFF 9:10 PM CDT procedure are in the results section. XR FOOT 3+ VW RIGHT STAT 01/24/2018 Results for this 8:42 PM CDT procedure are in the results section. after 02/17/2017 Results * Estimated GFR (02/13/2018 5:42 AM) Only the most recent of 9 results within the time period is included. Estimated GFR 14 (A) mL/min/1.73 m2 [facility] DEPARTMENT OF Comment: PATHOLOGY AND [facility] GENOMIC MEDICINE rpretation G1 >=90 Normal or high G2 60-89Mildly decreased [id number] Mildly to moderately decreased [id number] Moderately to severely decreased G4 15-29Severely decreased G5 <15Kidney failure The eGFR was calculated using the Chronic Kidney Disease Epidemiology Collaboration (CKD-EPI) equation. Interpretation is based on recommendations of the National Kidney Foundation-Kidney Disease Outcomes Quality Initiative (NKF-KDOQI) published in 2014. Specimen Plasma specimen Performing Organization Address [facility] Cent[facility]ode Phone Number [address] [place] [address] PATHOLOGY AND [facility] * Basic metabolic panel (02/13/2018 5:42 AM) Only the most recent of 6 results within the time period is included. Sodium 140 135 - 148 mEq/L [facility] DEPARTMENT OF PATHOLOGY AND [facility] MEDIC[facility] Potassium 3.6 3.5 - 5.0 mEq/L [facility] DEPARTMENT OF PATHOLOGY AND GENOMIC MEDICINE Chloride 98 98 - 112 mEq/L [facility] DEPARTMENT OF PATHOLOGY AND GENOMIC MEDICINE CO2 29 24 - 31 mEq/L [facility] DEPARTMENT OF PATHOLOGY AND GENOMIC MEDICINE Anion gap 13@ANIO 7 - 15 mEq/L [facility] DEPARTMENT OF PATHOLOGY AND GENOMIC MEDICINE BUN 15 8 - 23 mg/dL [facility] DEPARTMENT OF PATHOLOGY AND GENOMIC MEDICINE Creatinine 3.30 (H) 0.50 - 0.90 mg/dL [facility] DEPARTMENT OF PATHOLOGY AND GENOMIC MEDICINE Glucose 136 (H) 65 - 99 mg/dL [facility] DEPARTMENT OF PATHOLOGY AND GENOMIC MEDICINE Calcium 10.0 8.8 - 10.2 mg/dL [facility] OF PATHOLOGY AND [facility] Specimen Plasma specimen Performing Organization Address [facility] Cent[facility]ode Phone Number [address] [place] [address] PATHOLOGY AND [facility] * Hepatitis B surface antigen (02/12/2018 5:15 PM) Only the most recent of 2 results within the time period is included. Hepatitis B surface Ag Nonreactive Non-reactive [facility] DEPARTMENT OF PATHOLOGY AND [facility] Specimen Blood Performing Organization Address [facility] Centercode Phone Number [address] [place] [address] PATHOLOGY AND GENOMIC MEDICINE * POC glucose (02/12/2018 4:56 PM) Only the most recent of 44 results within the time period is included. POC glucose 175 (H) 65 - 99 mg/dL [facility] DEPARTMENT OF Comment: PATHOLOGY AND Meter ID: [id number] GENOMIC MEDICINE Quality Associate: Natalie Yadav Performing Organization Address [facility] Centercook Phone Number [facility] [id number] [place] [address] [place] [address] PATHOLOGY AND GENOMIC MEDICINE * Troponin (02/12/2018 3:05 AM) Only the most recent of 3 results within the time period is included. Troponin <0.300 0.000 - 0.300 ng/mL [facility] DEPARTMENT OF Comment: PATHOLOGY AND 0.30 - 1.49 GENOMIC MEDICINE ng/mlMay indicate increased risk of acute coronary syndrome. >=1.5 ng/ml Consistent with acute myocardial infarction. The diagnostic value of a single normal or non-diagnostic result is questionable.Serial samples at 2-6 hour intervals are required to rule out acute myocardial injury. Specimen Plasma specimen Performing Organization Address City/[facility] Phone Number [facility] OF [address] [place] [address] [place] [id number] PATHOLOGY AND [facility] * CBC with platelet and differential (02/12/2018 3:04 AM) Only the most recent of 8 results within the time period is included. WBC 8.32 4.50 - 11.00 k/uL [facility] DEPARTMENT OF PATHOLOGY AND GENOMIC MEDICINE RBC 3.22 (L) 4.20 - 5.50 m/uL [facility] DEPARTMENT OF PATHOLOGY AND GENOMIC MEDICINE HGB 9.6 (L) 12.0 - 16.0 g/dL [facility] DEPARTMENT OF PATHOLOGY AND GENOMIC MEDICINE HCT 30.3 (L) 37.0 - 47.0 % [facility] DEPARTMENT OF PATHOLOGY AND GENOMIC MEDICINE MCV 94.1 82.0 - 100.0 fL [facility] DEPARTMENT OF PATHOLOGY AND GENOMIC MEDICINE MCH 29.8 27.0 - 34.0 pg [facility] DEPARTMENT OF PATHOLOGY AND GENOMIC MEDICINE MCHC 31.7 31.0 - 37.0 g/dL [facility] DEPARTMENT OF PATHOLOGY AND GENOMIC MEDICINE RDW - SD 48.5 37.0 - 55.0 fL [facility] DEPARTMENT OF PATHOLOGY AND GENOMIC MEDICINE MPV 9.6 8.8 - 13.2 fL [facility] DEPARTMENT OF PATHOLOGY AND GENOMIC MEDICINE Platelet count 225 150 - 400 k/uL [facility] DEPARTMENT OF PATHOLOGY AND GENOMIC MEDICINE Nucleated RBC 0.00 /100 WBC [facility] DEPARTMENT OF PATHOLOGY AND GENOMIC MEDICINE Neutrophils 67.2 39.0 - 69.0 % [facility] DEPARTMENT OF PATHOLOGY AND GENOMIC MEDICINE Lymphocytes 21.0 (L) 25.0 - 45.0 % [facility] DEPARTMENT OF PATHOLOGY AND GENOMIC MEDICINE Monocytes 7.6 0.0 - 10.0 % [facility] DEPARTMENT OF PATHOLOGY AND GENOMIC MEDICINE Eosinophils 3.2 0.0 - 5.0 % [facility] DEPARTMENT OF PATHOLOGY AND GENOMIC MEDICINE Basophils 0.6 0.0 - 1.0 % [facility] DEPARTMENT OF PATHOLOGY AND GENOMIC MEDICINE Specimen Blood Performing Organization Address City/State/Zipcode Phone Number [place] [phone] [place] [address] PATHOLOGY AND GENOMIC MEDICINE * PV Duplex Arterial Lower Extremity (02/11/2018 10:00 PM) LT ATIB DIST PSV 42.10 cm/s HM CUPID LT ATIB MID PSV 43.50 cm/s HM CUPID LT ATIB PROX PSV 67.7 cm/s HM CUPID RT ATIB DIST PSV 39.50 cm/s HM CUPID RT ATIB MID PSV 40.30 cm/s HM CUPID RT ATIB PROX PSV 90.9 cm/s HM CUPID LT FRESH WORK WRAPPER LAYER PSV 79.3 cm/s HM CUPID RT FRESH WORK WRAPPER LAYER PSV 86 cm/s HM CUPID LT COURTNEY PROX PSV 50.7 cm/s HM CUPID RT COURTNEY PROX PSV 83.2 cm/s HM CUPID LT POP DIST PSV 55.2 cm/s HM CUPID LT POP PROX PSV 59.6 cm/s HM CUPID RT POP DIST PSV 63.9 cm/s HM CUPID RT POP PROX PSV 44.7 cm/s HM CUPID LT DIRECTOR LIFE DIST PSV 0.00 cm/s HM CUPID LT DIRECTOR LIFE MID PSV 21.00 cm/s HM CUPID LT DIRECTOR LIFE PROX PSV 0 cm/s HM CUPID RT DIRECTOR LIFE DIST PSV 0.00 cm/s HM CUPID RT DIRECTOR LIFE MID PSV 0.00 cm/s HM CUPID RT DIRECTOR LIFE PROX PSV 158.2 cm/s HM CUPID LT SFA DIST PSV 60.70 cm/s [facility] RT SFA DIST PSV 56.3 cm/s [facility] RT SFA MID PSV 69.5 cm/s [facility] RT SFA PROX PSV 66.2 cm/s [facility] L POP MID PSV 83.20 cm/sec [facility] R POP MID PSV 37.20 cm/sec [facility] L PFA PROX PSV 61.2 cm/sec [facility] R PFA PROX PSV 76.1 cm/sec [facility] LT SFA MID PSV 78 cm/s [facility] LT SFA PROX PSV 72.8 cm/s [facility] Narrative Performed At [facility] There is mild femoral-popliteal disease in both lower extremities. 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 Patient recently received an KRYSTA on 01/25/18 that showed an elevated KRYSTA in the right lower extremity and moderate occlusive disease on the left lower extremity. Bilateral posterior tibial arteries demonstrated absence of color filling and Doppler flow likely due to arterial calcification. Performing Organization Address City/State/Zipcode Phone Number [facility] [address] [place] [address] * CT Head Wo Contrast (02/11/2018 8:35 PM) Narrative Performed At EXAMINATION:CT HEAD WO CONTRAST [facility] CLINICAL HISTORY:weaknesslower extremities COMPARISON:None. FINDINGS: There are chronic infarctions with encephalomalacia, volume loss and gliosis in the left basal ganglia and right temporal occipital convexity. There is no evidence of acute hemorrhage, mass lesion, or midline shift. The olivera-white matter differentiation is preserved with no evidence of acute territorial infarction. The ventricles are slightly prominent due to central volume loss.There is no extra-axial fluid collection. Visualized paranasal sinuses and mastoid air cells are clear. Bones, orbits, and soft tissues are unremarkable All CT images were acquired using low-dose technique with automated exposure control. IMPRESSION: Multilevel areas of chronic infarctions as described with no evidence of acute intracranial hemorrhage or mass effect. If clinical warranted in the presence of new neurologic deficit, further evaluation with MRI of the brain is recommended to rule out any acute stroke. [facility]-[id number] Procedure Note Interface, Radiology Results Incoming - 02/11/2018 8:41 PM CDT EXAMINATION: CT HEAD WO CONTRAST CLINICAL HISTORY: weakness lower extremities COMPARISON: None. FINDINGS: There are chronic infarctions with encephalomalacia, volume loss and gliosis in the left basal ganglia and right temporal occipital convexity. There is no evidence of acute hemorrhage, mass lesion, or midline shift. The olivera-white matter differentiation is preserved with no evidence of acute territorial infarction. The ventricles are slightly prominent due to central volume loss.There is no extra-axial fluid collection. Visualized paranasal sinuses and mastoid air cells are clear. Bones, orbits, and soft tissues are unremarkable All CT images were acquired using low-dose technique with automated exposure control. IMPRESSION: Multilevel areas of chronic infarctions as described with no evidence of acute intracranial hemorrhage or mass effect. If clinical warranted in the presence of new neurologic deficit, further evaluation with MRI of the brain is recommended to rule out any acute stroke. [facility]-[id number] Performing Organization Address City/[facility] Phone Number [facility] [address] [place] [address] * Phosphorus level (02/11/2018 8:16 PM) Only the most recent of 2 results within the time period is included. Phosphorus 4.9 (H) 2.4 - 4.5 mg/dL [facility] DEPARTMENT OF PATHOLOGY AND GENOMIC MEDICINE Specimen Plasma specimen Performing Organization Address [facility] Phone Number [address] [place] [address] PATHOLOGY AND [facility] * Magnesium level (02/11/2018 8:16 PM) Magnesium 2.2 1.6 - 2.4 mg/dL [facility] DEPARTMENT OF PATHOLOGY AND GENOMIC MEDICINE Specimen Plasma specimen Performing Organization Address [facility] Phone Number [address] [place] [address] PATHOLOGY AND [facility] * Lipase level (02/11/2018 8:16 PM) Lipase 45 13 - 60 U/L [facility] DEPARTMENT OF PATHOLOGY AND GENOMIC MEDICINE Specimen Plasma specimen Performing Organization Address [facility] Phone Number [address] [place] [address] PATHOLOGY AND [facility] * Amylase level (02/11/2018 8:16 PM) Amylase 47 13 - 73 U/L [facility] DEPARTMENT OF PATHOLOGY AND GENOMIC MEDICINE Specimen Plasma specimen Performing Organization Address City/[facility]/Zipcode Phone Number [facility] [address] [place] [address] PATHOLOGY AND GENOMIC MEDICINE * Comprehensive metabolic panel (02/11/2018 8:16 PM) Only the most recent of 3 results within the time period is included. Sodium 141 135 - 148 mEq/L [facility] DEPARTMENT OF PATHOLOGY AND GENOMIC MEDICINE Potassium 4.6 3.5 - 5.0 mEq/L [facility] DEPARTMENT OF PATHOLOGY AND GENOMIC MEDICINE Chloride 101 98 - 112 mEq/L [facility] DEPARTMENT OF PATHOLOGY AND GENOMIC MEDICINE CO2 26 24 - 31 mEq/L [facility] DEPARTMENT OF PATHOLOGY AND GENOMIC MEDICINE Anion gap 14@ANIO 7 - 15 mEq/L [facility] DEPARTMENT OF PATHOLOGY AND GENOMIC MEDICINE BUN 22 8 - 23 mg/dL [facility] DEPARTMENT OF PATHOLOGY AND GENOMIC MEDICINE Creatinine 4.90 (H) 0.50 - 0.90 mg/dL [facility] DEPARTMENT OF PATHOLOGY AND GENOMIC MEDICINE Glucose 184 (H) 65 - 99 mg/dL [facility] DEPARTMENT OF PATHOLOGY AND GENOMIC MEDICINE Calcium 10.1 8.8 - 10.2 mg/dL [facility] DEPARTMENT OF PATHOLOGY AND GENOMIC MEDICINE Protein 7.6 6.3 - 8.3 g/dL [facility] DEPARTMENT OF Comment: PATHOLOGY AND [place] GENOMIC MEDICINE 4.6-7.0 g/dL 1 week 4.4-7.6 g/dL 7 months-1year 5.1-7.3 g/dL 1-2 years5.6-7 .5 g/dL >3 years6.0-8 .0 g/dL 18-150 6.3-8.3 g/dL Albumin 4.3 3.5 - 5.0 g/dL [facility] DEPARTMENT OF PATHOLOGY AND GENOMIC MEDICINE A/G ratio 1.3 0.7 - 3.8 [facility] DEPARTMENT OF PATHOLOGY AND GENOMIC MEDICINE Alkaline phosphatase 76 35 - 104 U/L [facility] DEPARTMENT OF PATHOLOGY AND GENOMIC MEDICINE AST 13 10 - 35 U/L [facility] DEPARTMENT OF PATHOLOGY AND GENOMIC MEDICINE ALT 10 5 - 50 U/L [facility] DEPARTMENT OF PATHOLOGY AND GENOMIC MEDICINE Total bilirubin <0.2 0.0 - 1.2 mg/dL [facility] DEPARTMENT OF PATHOLOGY AND GENOMIC MEDICINE Specimen Plasma specimen Performing Organization Address City/State/Zipcode Phone Number [address] [place] [address] PATHOLOGY AND GENOMIC MEDICINE * Vancomycin level, trough (02/03/2018 4:45 AM) Vancomycin, trough 21.4 (HH) 10.0 - 20.0 ug/mL [facility] DEPARTMENT OF Comment: PATHOLOGY AND Therapeutic Ranges: GENOMIC MEDICINE Peak 30.0 - 40.0 ug/mL Mxvssp69.0 - 20.0 ug/mL Results called to and read back by RACHID EMERY/4TH DALY at 02/03/2018 05:15 by [email or web address]. Specimen Serum Performing Organization Address [facility] Phone Number [address] [place] [address] PATHOLOGY AND GENOMIC MEDICINE * Hepatitis acute panel (01/31/2018 5:00 AM) Hepatitis A IgM Nonreactive Non-reactive [facility] DEPARTMENT OF PATHOLOGY AND GENOMIC MEDICINE Hepatitis B core IgM Nonreactive Non-reactive [facility] DEPARTMENT OF PATHOLOGY AND GENOMIC MEDICINE Hepatitis B surface Ag Nonreactive Non-reactive [facility] DEPARTMENT OF PATHOLOGY AND GENOMIC MEDICINE Hepatitis C Ab Nonreactive Non-reactive [facility] DEPARTMENT OF PATHOLOGY AND GENOMIC MEDICINE Specimen Serum Performing Organization Address [facility] Phone Number [address] [place] [address] PATHOLOGY AND [facility] * IR Bilateral Lower Extremity Arteriogram (01/30/2018 5:05 PM) Narrative Performed At PROCEDURE:IR BILATERAL LOWER EXTREMITY ARTERIOGRAM [facility] This exam was performed in the Radiology department. Fluoro time:10:39 minutes IMPRESSION: A complete separate report will be issued in operative notes by the performing physician. [id number] Procedure Note Interface, Radiology Results Incoming - 02/10/2018 2:17 PM CDT PROCEDURE: IR BILATERAL LOWER EXTREMITY ARTERIOGRAM This exam was performed in the Radiology department. Fluoro time: 10:39 minutes IMPRESSION: A complete separate report will be issued in operative notes by the performing physician. [id number] Performing Organization Address City/[facility]/Zipcode Phone Number [facility] [address] [place] [address] * IR Revasc Fem Popl W Tla Right (01/30/2018 5:05 PM) Narrative Performed At PROCEDURE:IR REVASC FEM POPL W TLA RIGHT [facility] This exam was performed in the Radiology department. Fluoro time:10:39 minutes IMPRESSION: A complete separate report will be issued in operative notes by the performing physician. [id number] Procedure Note Interface, Radiology Results Incoming - 02/10/2018 2:17 PM CDT PROCEDURE: IR REVASC FEM POPL W TLA RIGHT This exam was performed in the Radiology department. Fluoro time: 10:39 minutes IMPRESSION: A complete separate report will be issued in operative notes by the performing physician. [id number] Performing Organization Address [facility] Phone Number [facility] [address] [place] [address] * IR Aortogram Abdominal (01/30/2018 5:05 PM) Narrative Performed At PROCEDURE:IR ABDOMINAL AORTOGRAM [facility] This exam was performed in the Radiology department. Fluoro time:10:39 minutes IMPRESSION: A complete separate report will be issued in operative notes by the performing physician. [id number] Procedure Note Interface, Radiology Results Incoming - 02/10/2018 2:17 PM CDT PROCEDURE: IR ABDOMINAL AORTOGRAM This exam was performed in the Radiology department. Fluoro time: 10:39 minutes IMPRESSION: A complete separate report will be issued in operative notes by the performing physician. [id number] Performing Organization Address [facility] Phone Number [facility] [address] [place] [address] * Activated clotting time (01/30/2018 4:40 PM) Activated clotting time 249.0 (H) 74.0 - 125.0 sec [facility] DEPARTMENT OF PATHOLOGY AND GENOMIC MEDICINE Performing Organization Address [facility] Phone Number [address] [place] [address] PATHOLOGY AND GENOMIC MEDICINE * Potassium level (01/30/2018 2:15 PM) Potassium 4.4 3.5 - 5.0 mEq/L [facility] DEPARTMENT OF PATHOLOGY AND GENOMIC MEDICINE Specimen Plasma specimen Performing Organization Address [facility] Phone Number [address] [place] [address] PATHOLOGY AND GENOMIC MEDICINE * Type and screen (01/29/2018 4:42 AM) ABO grouping A [facility] DEPARTMENT OF PATHOLOGY AND GENOMIC MEDICINE Rh type NEG [facility] DEPARTMENT OF PATHOLOGY AND GENOMIC MEDICINE Antibody screen NEG [facility] PATHOLOGY AND GENOMIC MEDICINE Specimen Blood Performing Organization Address City/[facility]/Zipcode Phone Number [facility] [place] [id number] [place] [address] [place] [address] PATHOLOGY AND GENOMIC MEDICINE * Vancomycin level, random (01/29/2018 4:42 AM) Only the most recent of 3 results within the time period is included. Vancomycin, random 12.3 ug/mL [facility] OF PATHOLOGY AND [facility] Specimen Serum Performing Organization Address [facility] Phone Number [facility] [place] [address] [place] [address] [place] [address] PATHOLOGY AND GENOMIC MEDICINE * Hepatitis B surface Ab, quantitative (01/27/2018 11:21 AM) Only the most recent of 2 results within the time period is included. Hepatitis B surface Ab 215.95 IU/L [facility] Comment: The anti-HBs is greater than or equal to 10 IU/L. This patient has either had an antibody response to HBV vaccination, received a transfusion, or has recovered from HBV infection. This patient should be considered immune to hepatitis B. An anti-HBs result greater than or equal to 10 IU/L implies immunity. For post-vaccination antibody testing guidelines for the general public refer to MMWR April 20, 2005/Vol. 54(No. 16);1-23, and for healthcare workers refer to MMWR April 17, 2013/Vol. 62(No. 10);1-19. Reference Interval: anti-HBs 9.99 IU/L or less ....... Negative 10.00 IU/L or greater .... Positive Results greater than 1,000.00 IU/L are reported as greater than 1,000.00 IU/L. This assay should not be used for blood donor screening, associated re-entry protocols, or for screening Human Cell, Tissues and Cellular and Tissue-Based Products (HCT/P). Performed by [facility], [address] [place] [address] [email or web address], Oscar Tobin MD - Lab. Director Specimen Serum Performing Organization Address [facility]/Zipcode Phone Number [facility] [address] [place] [address] * XR Chest 2 Vw (01/26/2018 10:49 PM) Narrative Performed At EXAMINATION: XR CHEST 2 VW [facility] INDICATION: pacemaker confirmation COMPARISON: None IMPRESSION: AICD generator overlies the left chest wall with the lead tip in the right ventricle. Tunneled right jugular approach central venous catheter tip overlies the right atrium. Left jugular approach intravenous catheter tip overlies the superior cavoatrial junction. Low lung volumes without acute airspace disease or pulmonary edema. No pleural effusion or pneumothorax. Heart size within normal limits. Mildly enlarged central pulmonary arteries. Stippled calcifications in the left upper quadrant, indeterminate but possibly retained contrast material within the bowel. [facility]-[id number] Procedure Note Interface, Radiology Results Incoming - 01/26/2018 10:55 PM CDT EXAMINATION: XR CHEST 2 VW INDICATION: pacemaker confirmation COMPARISON: None IMPRESSION: AICD generator overlies the left chest wall with the lead tip in the right ventricle. Tunneled right jugular approach central venous catheter tip overlies the right atrium. Left jugular approach intravenous catheter tip overlies the superior cavoatrial junction. Low lung volumes without acute airspace disease or pulmonary edema. No pleural effusion or pneumothorax. Heart size within normal limits. Mildly enlarged central pulmonary arteries. Stippled calcifications in the left upper quadrant, indeterminate but possibly retained contrast material within the bowel. [facility]-[id number] Performing Organization Address City/State/Zipcode Phone Number [facility] [address] [place] [address] * CT Lower Extremity Wo Contrast Right (01/26/2018 9:53 AM) Narrative Performed At EXAMINATION: CT LOWER EXTREMITY WO CONTRAST RIGHT [facility] CLINICAL HISTORY: Osteomyelitis TECHNIQUE: Multi-detector computed axial tomography of the right foot was performed without IV iodinated contrast. Sagittal and coronal computerized reformatted images of the body were created at a workstation and archived for review. DOSE REDUCTION: CT imaging was performed with iterative reconstruction technique and/or automated exposure control to reduce radiation dose. COMPARISON: Plain film right foot January 24, 2018 IMPRESSION: 1.There are findings consistent with osteomyelitis of the distal phalanx of the right great toe. FINDINGS: Focal cortical disruption and erosion involving the distal phalanx of the right great toe are consistent with osteomyelitis. Mild soft tissue swelling and nail deformity of the great toe are also seen. Hammertoe deformities. Mild deformity of the fourth proximal phalanx is likely chronic posttraumatic. Tiny subcortical cystic changes in the midfoot are compatible with mild primary osteoarthritis. Large plantar calcaneal spur. Mild calcification and enthesopathy of the Achilles tendon insertion. Extensive arterial calcifications. Remainder of the exam is unremarkable. [facility]-[id number] Procedure Note Hm Interface, Radiology Results Incoming - 01/26/2018 10:41 AM CDT EXAMINATION: CT LOWER EXTREMITY WO CONTRAST RIGHT CLINICAL HISTORY: Osteomyelitis TECHNIQUE: Multi-detector computed axial tomography of the right foot was performed without IV iodinated contrast. Sagittal and coronal computerized reformatted images of the body were created at a workstation and archived for review. DOSE REDUCTION: CT imaging was performed with iterative reconstruction technique and/or automated exposure control to reduce radiation dose. COMPARISON: Plain film right foot January 24, 2018 IMPRESSION: 1. There are findings consistent with osteomyelitis of the distal phalanx of the right great toe. FINDINGS: Focal cortical disruption and erosion involving the distal phalanx of the right great toe are consistent with osteomyelitis. Mild soft tissue swelling and nail deformity of the great toe are also seen. Hammertoe deformities. Mild deformity of the fourth proximal phalanx is likely chronic posttraumatic. Tiny subcortical cystic changes in the midfoot are compatible with mild primary osteoarthritis. Large plantar calcaneal spur. Mild calcification and enthesopathy of the Achilles tendon insertion. Extensive arterial calcifications. Remainder of the exam is unremarkable. [facility]-[id number] Performing Organization Address [facility] Phone Number [facility] [address] [place] [address] * ECG 12 lead (01/25/2018 5:35 PM) Ventricular rate 70 [facility] Atrial rate 70 [facility] MUSE IN interval 174 [facility] QRSD interval 102 [facility] QT interval 444 [facility] QTC interval 479 [facility] MUSE P axis 1 46 [facility] QRS axis 1 -16 [facility] T wave axis 91 [facility] MUSE EKG impression Normal sinus rhythm-Minimal [facility] MUSE voltage criteria for LVH, may be normal variant-Abnormal QRS-T angle, consider primary T wave abnormality-Prolonged QT-Abnormal ECG-No previous ECGs available- Performing Organization Address [facility] Phone Number [facility] [employer] [address] [place] [address] * Pv physiologic arterial lower extremity limited (01/25/2018 1:47 PM) Right arm BP 141 mmHg [facility] Left posterior tibial 102 mmHg [facility] Right posterior tibial 91 mmHg [facility] Right toe pressure 1 mmHg [facility] Left Dorsal Pedis BP 130 mmHg [facility] Right Dorsal Pedis 202 mmHg [facility] Left KRYSTA 0.72 [facility] Right KRYSTA 1.43 [facility] Narrative Performed At [facility] There are calcified vessels in the right ankle resulting in high KRYSTA. Faslely elevated ABIs are identified in the right lower extremity. The left KRYSTA is 0.7 and suggests moderate arterial insufficiency. Performing Organization Address City/[facility] Phone Number [facility] [address] [place] [address] * Aerobic culture (01/24/2018 9:30 PM) Aerobic culture isolate Staphylococcus aureus [facility] DEPARTMENT OF Many PATHOLOGY AND , susceptibility to follow [facility] This organism is Methicillin Resistant. (A) Comment: Specimen Information Specimen Source: Wound Specimen Site: Toe Specimen Wound - Toe Organism Antibiotic Method Susceptibility Staphylococcus aureus Ampicillin CANDELARIO mcg/mL: Resistant Staphylococcus aureus Clindamycin CANDELARIO >2 mcg/mL: Resistant Staphylococcus aureus Cefazolin CANDELARIO mcg/mL: Resistant Staphylococcus aureus Erythromycin CANDELARIO >4 mcg/mL: Resistant Staphylococcus aureus Levofloxacin CANDELARIO 4 mcg/mL: Resistant Staphylococcus aureus Linezolid CANDELARIO 2 mcg/mL: Susceptible Staphylococcus aureus Minocycline CANDELARIO <=1 mcg/mL: Susceptible Staphylococcus aureus Oxacillin CANDELARIO >2 mcg/mL: Resistant Staphylococcus aureus Penicillin G CANDELARIO >1 mcg/mL: Resistant Staphylococcus aureus Rifampin CANDELARIO <=0.5 mcg/mL: Susceptible Staphylococcus aureus Trimethoprim/Sulfamethoxa CANDELARIO <=0.5/9.5 mcg/mL: zole Susceptible Staphylococcus aureus Tetracycline CANDELARIO <=0.5 mcg/mL: Susceptible Staphylococcus aureus Vancomycin CANDELARIO 1 mcg/mL: Susceptible Performing Organization Address City/State/Zipcode Phone Number [facility] DEPARTMENT OF [address] [place] [address] PATHOLOGY AND GENOMIC MEDICINE * Gram stain (01/24/2018 9:30 PM) Gram stain isolate No WBC's [facility] DEPARTMENT OF Many Gram positive cocci in PATHOLOGY AND [facility] GENOMIC MEDICINE Comment: Specimen Information Specimen Source: Wound Specimen Site: Toe Specimen Wound - Toe Performing Organization Address City/State/Zipcode Phone Number [facility] DEPARTMENT OF [address] [place] [address] PATHOLOGY AND GENOMIC MEDICINE * Anaerobic culture (01/24/2018 9:30 PM) Anaerobic culture isolate No anaerobic organisms [facility] DEPARTMENT OF isolated. PATHOLOGY AND Comment: GENOMIC MEDICINE Specimen Information Specimen Source: Wound Specimen Site: Toe Specimen Wound - Toe Performing Organization Address [facility] Phone Number [address] [address] PATHOLOGY AND GENOMIC MEDICINE * Blood culture, aerobic & anaerobic (01/24/2018 9:15 PM) Only the most recent of 2 results within the time period is included. Blood culture isolate No growth after 5 days of [facility] DEPARTMENT OF incubation. PATHOLOGY AND Comment: GENOMIC MEDICINE Specimen Information Specimen Source: Blood Specimen Site: Antecubital, left Specimen Blood - Antecubital, left Performing Organization Address [facility] Phone Number [facility] DEPARTMENT [address] [address] PATHOLOGY AND GENOMIC MEDICINE * Partial thromboplastin time, activated (01/24/2018 9:10 PM) PTT 31.1 23.0 - 36.0 sec [facility] DEPARTMENT OF Comment: PATHOLOGY AND PTT therapeutic range for [facility] unfractionated heparin is 61.0-112.0 seconds which corresponds to Anti-Xa 0.3-0.7 U/ml. Specimen Blood Performing Organization Address [facility] Phone Number [address] [place] [address] PATHOLOGY AND GENOMIC MEDICINE * Prothrombin time with INR (01/24/2018 9:10 PM) Prothrombin time 13.6 12.0 - 15.0 sec [facility] DEPARTMENT OF PATHOLOGY AND GENOMIC MEDICINE INR 1.0 [facility] DEPARTMENT OF Comment: PATHOLOGY AND The International Normalized [facility] Ratio (INR) is a therapeutic monitoring tool for patients who are stable on oral anticoagulant therapy. An INR of 2.0-3.0 is suggested for deep vein thrombosis/pulmonary embolism. Specimen Blood Performing Organization Address [facility] Phone Number [address] [place] [phone] PATHOLOGY AND GENOMIC MEDICINE * Hemoglobin A1c (01/24/2018 9:10 PM) Hemoglobin A1C 5.8 4.0 - 6.0 % [facility] DEPARTMENT OF Comment: PATHOLOGY AND GENOMIC MEDICINE Less than 6% - Goal of therapy for Type II Diabetes Less than 7%-Goal of therapy for Type I Diabetes Less than 8%-Accepta ble control for Type I or Type II Diabetes Greater than 8%-Unacceptabl e control; action indicated. ([id number]) Specimen Blood Performing Organization Address City/State/Zipcode Phone Number [facility] [place] [id number] [place] [address] PATHOLOGY AND GENOMIC MEDICINE * Lipid panel (01/24/2018 9:10 PM) Cholesterol 170 <200 mg/dL [facility] DEPARTMENT OF PATHOLOGY AND GENOMIC MEDICINE Triglycerides 237 (H) <150 mg/dL [facility] DEPARTMENT OF PATHOLOGY AND GENOMIC MEDICINE HDL cholesterol 35 (L) >40 mg/dL [facility] DEPARTMENT OF PATHOLOGY AND GENOMIC MEDICINE LDL cholesterol 98Comment: Result obtained by <100 mg/dL [facility] DEPARTMENT OF direct LDL measurement PATHOLOGY AND [facility] Lipid panel SeeBelow [facility] DEPARTMENT OF interpretation Comment: PATHOLOGY AND Total Cholesterol GENOMIC MEDICINE (mg/dL) <200 Desirable 200-239Borderline -high >=240High Triglycerides (mg/dL) <150 Normal 150-199Borderline -high 200-499High >=500Very high HDL Cholesterol (mg/dL) <40Low (male) <40Low (female) LDL Cholesterol (mg/dL) <100 Optimal 100-129Near or above optimal 130-159Borderline -high 160-189High >=190Very high Risk Catergories that modify LDL goals. Risk Catergories LDL goal (mg/dL) CHD and CHD risk equivalent<100 (10-year risk >20%) Multiple (2+) risk factors <130 (10-year risk=<20%) 0-1 risk factors <160 (<10-year risk) Defining levels of lipids in metabolic syndrome Triglycerides >=150 mg/dL HDL Cholesterol Men <40 mg/dL Women <40 mg/dL Non-HDL cholesterol is a second target for therapy in persons with high triglycerides (>=200 mg/dL) Specimen Plasma specimen Performing Organization Address City/State/Zipcode Phone Number [id number] [address] [place] [address] PATHOLOGY AND GENOMIC MEDICINE * XR Foot 3+ Vw Right (01/24/2018 8:42 PM) Narrative Performed At EXAMINATION:XR FOOT 3VW RIGHT [facility] CLINICAL HISTORY:right great toe infection COMPARISON:None. IMPRESSION: Extensive vascular calcifications are noted diffusely. Plantar calcaneal spur is present. There is no radiographic evidence of osteomyelitis. [facility]-[id number] Procedure Note Hm Interface, Radiology Results Incoming - 01/24/2018 8:50 PM CDT EXAMINATION: XR FOOT 3 VW RIGHT CLINICAL HISTORY: right great toe infection COMPARISON: None. IMPRESSION: Extensive vascular calcifications are noted diffusely. Plantar calcaneal spur is present. There is no radiographic evidence of osteomyelitis. [facility]-[id number] Performing Organization Address City/[facility]/Zipcode Phone Number [facility] [address] [place] [address] after 02/17/2017 Insurance Payer Benefit Subscriber ID Type Phone Address Plan / Group MEDICARE MEDICARE xxxxxxxxxx Medicare [place], [place] [address]
[2018-02-18] MEDS ORDERED: SODIUM CHLORIDE 0.9% 1000ML 1,000 ML IV STA (11:09)
[2018-02-18] MEDS ORDERED: FLUCONAZOLE200 MG PO (11:29)
[2018-02-18] MEDS ORDERED: LORAZEPAM1 MG PO (11:29)
[2018-02-18] MEDS ORDERED: CLOPIDOGREL75 MG PO (11:29)
[2018-02-18 12:08] LABS: BASOPHILS % 0.3 % (0.0-1.0); EOSINOPHILS # (AUTO) 0.3 (0.0-0.4); EOSINOPHILS % 2.5 % (0.0-6.0); HEMATOCRIT 29.3 % (34.2-44.1); HEMOGLOBIN 9.6 g/dL (12.0-16.0); LYMPHOCYTES % 9.5 % (18.0-39.1); MEAN CORPUSCULAR HEMOGLOBIN 29.9 pg (28-32); MEAN CORPUSCULAR HGB CONC 32.8 g/dL (31-35); MEAN CORPUSCULAR VOLUME 91.3 fL (81-99); MONOCYTES # (AUTO) 0.7 (0.2-0.8); MONOCYTES % 6.7 % (4.4-11.3); NEUTROPHILS # (AUTO) 8.3 (2.1-6.9); NEUTROPHILS % 80.7 % (38.7-80.0); PLATELET COUNT 223 x10e3/uL (140-360); RED BLOOD COUNT 3.21 x10e6/uL (3.6-5.1); RED CELL DISTRIBUTION WIDTH 13.9 % (11.7-14.4)
[2018-02-18 12:14] LABS: INR 0.95; PROTHROMBIN TIME 13.6 seconds (11.9-14.5)
[2018-02-18 12:15] LABS: PARTIAL THROMBOPLASTIN TIME 29.8 seconds (23.8-35.5)
[2018-02-18 12:25] LABS: ALBUMIN/GLOBULIN RATIO 1.5 (0.8-2.0); ANION GAP 17.5 mmol/L (8-16); CALCIUM 9.6 mg/dL (8.4-10.2); CREATININE, SERUM 4.04 mg/dL (0.57-1.11); POTASSIUM 3.5 mmol/L (3.5-5.1)
[2018-02-18 12:45] LABS: CREATINE KINASE MB 4.9 ng/mL (0-5.0); THYROID STIMULATING HORMONE 1.965 uIU/mL (0.350-4.940)
[2018-02-18 13:00] LABS: BILIRUBIN,URINE 2+ (NEGATIVE); CLARITY,URINE CLOUDY (CLEAR); COLOR,URINE YELLOW (YELLOW); KETONES,URINE TRACE (NEGATIVE); LEUKOCYTE ESTERASE ,URINE 2+ (NEGATIVE); NITRITE,URINE NEGATIVE (NEGATIVE); PROTEIN,URINE DIPSTICK 3+ (NEGATIVE); URINE UROBILINOGEN 0.2 mg/dL (0.2 - 1)
[2018-02-18 13:04] LABS: BACTERIA,URINE FEW /HPF; EPITHELIAL CELLS,URINE FEW /LPF; YEAST,URINE RARE
--- NOTE | 2018-02-18 13:27 | Diagnostic Imaging Report ---
EXAMINATION: CHEST SINGLE (PORTABLE) COMPARISON: Chest radiograph 01/22/18. FINDINGS: LINES/TUBES: Interval removal of left IJ non-tunneled central venous catheter. There is a right internal jugular vein tunneled hemodialysis catheter terminates in the expected location of the proximal right atrium. There is a left single lead cardiac device with lead in the expected location of the right ventricle. LUNGS: Low lung volumes with mild patchy bibasilar atelectasis. No consolidations or edema. PLEURA: No effusions or pneumothorax. HEART AND MEDIASTINUM: Unremarkable cardiomediastinal silhouette. Central vascular congestion, likely accentuated by low lung volumes. BONES AND SOFT TISSUES: No acute radiographic abnormality. IMPRESSION: No acute radiographic abnormality. Interval removal of left IJ central line. Right IJ tunneled hemodialysis and left single lead cardiac pacer device in unchanged position. Signed by: Dr. Gino Mccord MD on 02/18/2018 1:24 PM
[2018-02-18] MEDS ORDERED: CEFTRIAXONE SOD 1 GM VIAL IV ONE (13:30)
--- NOTE | 2018-02-18 13:52 | Diagnostic Imaging Report ---
TECHNIQUE: Computed tomography imaging of the PELVIS was performed WITHOUT injected contrast using standard departmental protocols.Dose modulation, iterative reconstruction, and/or weight based adjustment of the mA/kV was utilized to reduce the radiation dose to as low as reasonably achievable. HISTORY: Pain, fall COMPARISON: None. FINDINGS: No displaced fracture. Transitional anatomy L5 with hypoplastic disc space and fusion of the right transverse process. No lytic or blastic lesion. Mild sacroiliac degenerative arthrosis. No fluid collections. IMPRESSION: No acute osseous abnormality Signed by: Dr. Kevin Levine M.D. on 02/18/2018 1:48 PM
--- NOTE | 2018-02-18 14:25 | Diagnostic Imaging Report ---
Examination: CT head without contrast Clinical Indication: Fall. Head injury. Technique: Transaxial noncontrast images from the skull base through the vertex were obtained. Sagittal and coronal reformatted images were done. Dose modulation, iterative reconstruction, and/or weight based adjustment of the mA/kV was utilized to reduce the radiation dose to as low as reasonably achievable. Comparison: None. Findings: Scalp: No abnormalities. Bones: Intact. No fractures. No blastic or lytic lesions. Brain sulci: Appropriate for patient's age. Ventricles: Normal in size and configuration. No hydrocephalus. . Extra-axial space: No abnormalities. Parenchyma: There are patchy areas of low-attenuation within subcortical and periventricular white matter, nonspecific, but could represent microvascular ischemic disease. A chronic appearing infarct is demonstrated in the right frontal centrum semiovale, left striatocapsular region and left putamen. There is chronic cortical based infarct involving the right superior and inferior orbital gyri. No masses, hemorrhage, or acute cortical based vascular insults. Suprasellar region: No abnormalities. Craniocervical junction: The foramen magnum is patent. No Chiari one malformation. Incidental findings: Atherosclerotic calcification of the cavernous and supraclinoid internal carotid and V4 segments of the bilateral vertebral arteries. Impression: 1. No acute intracranial finding. 2. Mild chronic microvascular ischemic change. 3. Chronic infarcts, as above. 4. Mild volume loss. Signed by: Dr. Latesha Dave M.D. on 02/18/2018 2:22 PM
--- NOTE | 2018-02-18 14:27 | Diagnostic Imaging Report ---
Examination: CT CERVICAL SPINE WITHOUT CONTRAST HISTORY:Neck pain after fall. Evaluate for fracture. COMPARISON:None. TECHNIQUE: Multidetector helical axial images were obtained without contrast from the foramen magnum to T1. Coronal and sagittal reformatted images were done. Bone and soft tissue windows were evaluated. Dose modulation, iterative reconstruction, and/or weight based adjustment of the mA/kV was utilized to reduce the radiation dose to as low as reasonably achievable. FINDINGS: Alignment:Normal lordosis with grade I anterolisthesis of C5 on C6 and C6 and C7. Vertebrae: Normal height and density. No acute fracture, infection or neoplasm. Disc space heights: Normal height. Caliber of spinal canal: Developmentally normal. Posterior fossa and craniocervical junction: Foramen magnum patent. No Chiari 1 malformation. Soft tissues: Several hypodense nodules are seen within the bilateral thyroid lobes. Degenerative changes: No disc bulge/ herniation or foraminal or canal stenosis. Additional findings: A double lumen catheter is seen in the region of the right internal jugular vein. IMPRESSION: No acute abnormalities. Signed by: Dr. Latesha Dave M.D. on 02/18/2018 2:24 PM
== END 2018-02-18 15:50 | disposition left against medical advice (07) ==
LOC: ER 11:00
DX: S00.33XA Contusion of nose, initial encounter (principal); W06.XXXA Fall from bed, initial encounter; M54.5 Low back pain; Y93.84 Activity, sleeping; Y92.008 Other place in unspecified non-institutional (private) residence as the place of occurrence of the external cause; G30.9 Alzheimer's disease, unspecified; F02.80 Dementia in other diseases classified elsewhere, unspecified severity, without behavioral disturbance, psychotic disturbance, mood disturbance, and anxiety; I10 Essential (primary) hypertension; E11.9 Type 2 diabetes mellitus without complications; Z86.73 Personal history of transient ischemic attack (TIA), and cerebral infarction without residual deficits; Z95.0 Presence of cardiac pacemaker; Z86.14 Personal history of Methicillin resistant Staphylococcus aureus infection
CPT/HCPCS: 36000; 36415; 51700; 70450; 71045; 72125; 72192; 80053; 81001; 82550; 82553; 83605; 83690; 83735; 83880; 84443; 84484; 85025; 85610; 85730; 87040; 87086; 93005; 99284; J0696; J7030